=== PATIENT | female | born 1975 | race Caucasian/White ===

== ENCOUNTER 2022-08-23 09:56 | Outpatient (CLI) | payer BC, SELFPAY ==
--- NOTE | 2022-08-23 10:15 | CRLHL7_ITS ---
For Patients: As a result of the Century Cures Act, medical imaging exams and procedure reports are released immediately into your electronic medical record. You may view this report before your referring provider. If you have questions, please contact your health care provider. INDICATION: Intermittent esophageal spasm. TECHNIQUE: Single and double contrast esophagram. FINDINGS: No stricture, mass, or obstruction. No evidence for esophageal spasm during the course of the study. No evidence for any significant reflux or reflux esophagitis. There was however a very tiny sliding type esophageal hiatal hernia seen only twice during the course of the study and likely of doubtful clinical significance. Brief evaluation of the stomach and duodenum indicate that they are grossly unremarkable. 2 minutes 9 seconds fluoroscopy time utilized. IMPRESSION : Tiny sliding type esophageal hiatal hernia. No significant reflux. The examination is otherwise negative. Dictated by Ezekiel Arreola MD @ 08/23/2022 11:05:14 AM (Electronically Signed)
== END 2022-08-23 09:57 | disposition home or self-care (01) ==
PROVIDERS: PCP Internal Medicine; Visit Provider Internal Medicine
DX: K22.4 Dyskinesia of esophagus (principal); K44.9 Diaphragmatic hernia without obstruction or gangrene
CPT/HCPCS: 74221

== ENCOUNTER 2024-04-12 09:22 | Day surgery (SDC) | payer OTHER, SELFPAY ==
--- OUTSIDE RECORDS SUMMARY | 2024-04-12 09:26 | XMS_ITS | Clinical Summary ---
Author Organization [facility] Address [place], [place] [address] Care Team Providers [employer] Couch Frame Builder Name Role Phone Gretchen Vyas PharmD Unavailable [phone] Love Mcdaniel MD Primary Care Provider [phone] Kelly Blount RN Unavailable Allergies Active Allergy Reactions Criticality Noted Date Comments Silver Sulfate-Foam Bandage Hives 03/18/19 25 Medications fexofenadine (ELOISA) 180 mg tablet Take 1 tablet by mouth. One tab PO Q HS X 2 month supply 60 tablet 3 06/07/19 11 Active aspirin chewable 81 mg chewable tablet Take 81 mg by mouth once daily with a meal. Active tretinoin 0.1 % cream Apply topically to affected area(s) at bedtime. 45 g 3 2 2:47 PM CDT 10/27/19 22 Active mupirocin (BACTROBAN OINTMENT) ointmentIndicatio ns:Sore in nose Apply topically to affected area(s) once daily if needed (nose sores). 22 g 1 3 2:17 PM SPECIALTY SALES CONSULTANT 04/08/19 23 Active nitroglycerin (NITROSTAT) 0.[address] 1 tablet by sublingual route at the 1st sign of attack; may repeat every 5 min until relief; if pain persists after 3 tablets in 15 min, call 911 25 Tablet 4 2:38 PM SPECIALTY SALES CONSULTANT 03/10/19 24 Active OneTouch Delica Plus Lancet 33 gauge miscIndications:T ype 2 diabetes mellitus without complications (HC) Test blood sugar once daily. 100 Each 4 1:08 PM SPECIALTY SALES CONSULTANT 05/30/19 24 Active blood sugar diagnostic (OneTouch Ultra Test) stripIndications: Type 2 diabetes mellitus without complications (HC) Test once daily. 100 Each 3 4 1:08 PM SPECIALTY SALES CONSULTANT 05/29/19 24 Active medication order composerIndicatio ns:Menopause DHEA Pure Encapsulations 5mg. Take 1 daily Optiferrin-C Pure Encapsulations. 1 daily Garden of Life Probiotic 100 billion Fish Oil Magnesium glycinate Pure Encapsulations 1-2 pills nightly NeuroMag Life Extensions 3 pills daily Blood Sugar Support Vital Proteins 2 pills daily 08/15/19 24 Active levothyroxine (SYNTHROID) 100 mcg tabletIndications :Acquired hypothyroidism Take 1 Tablet (100 mcg) by mouth once daily. 90 Tablet 2 4 12:40 PM SPECIALTY SALES CONSULTANT 08/27/19 24 Active progesterone micronized (PROMETRIUM) 100 mg capsuleIndication s:Menopause,Acqui red hypothyroidism,Ir on deficiency Take 1 Capsule (100 mg) by mouth at bedtime. This product contains peanut oil. Please verify patient allergies. 90 Capsule 3 4 4:02 PM SPECIALTY SALES CONSULTANT 09/10/19 24 Active transmitter (Dexcom G6 Transmitter) for continuous blood glucose monitor (CGM)Indications: Type 2 diabetes mellitus without complication, without long-term current use of insulin (HC) Change every 90 days 1 Each 3 5 11:16 AM SPECIALTY SALES CONSULTANT 09/17/19 24 Active Dexcom G6 Sensor for continuous blood glucose monitor (CGM)Indications: Type 2 diabetes mellitus without complication, without long-term current use of insulin (HC) Change sensor every 10 days 9 Each 3 4 1:08 PM SPECIALTY SALES CONSULTANT 09/17/19 24 Active COVID-19 antigen test (CorDx Covid-19 Ag Home Test) kit Use as directed on packaging. 4 Kit 5 11:16 AM SPECIALTY SALES CONSULTANT 10/27/19 24 Active hydrOXYzine HCL (ATARAX) 25 mg tabletIndications :Panic attack Take 1 Tablet (25 mg) by mouth every 6 hours if needed for Anxiety. 25 Tablet 1 4 4:02 PM SPECIALTY SALES CONSULTANT 11/14/19 24 Active atorvastatin (LIPITOR) 80 mg tabletIndications :Mixed hyperlipidemia Take 1 Tablet (80 mg) by mouth at bedtime. 90 Tablet 4 4:02 PM SPECIALTY SALES CONSULTANT 12/10/19 24 Active busPIRone (BUSPAR) 30 mg tabletIndications :Generalized anxiety disorder Take 1 Tablet (30 mg) by mouth two times daily. 180 Tablet 4 4:01 PM SPECIALTY SALES CONSULTANT 12/10/19 24 Active fish oil-omega-3 fatty acids 300-1,000 mg Take 1 Capsule by mouth once daily. 90 Capsule 3 12/11/19 24 Active testosterone buik powderIndications :Low testosterone level in female Testosterone 4mg/gram cream (topiclick): apply 0.5 gram topically at bedtime (2 click) 30 g 2 12/17/19 24 Active Dexcom G6 Coil Finisher for continuous blood glucose monitor (CGM)Indications: Type 2 diabetes mellitus without complication, without long-term current use of insulin (HC) To be used to read blood sugars follow tugger operator directions. 1 Each 3 4 3:32 PM CDT 12/26/19 24 Active metFORMIN (GLUCOPHAGE XR) 500 mg Extended-Release tabletIndications :Type 2 diabetes mellitus without complication, with long-term current use of insulin (HC) Take 2 Tablets (1,000 mg) by mouth two times daily with meals. 360 Tablet 4 3:48 PM SPECIALTY SALES CONSULTANT 01/22/20 24 Active glipiZIDE extended-release (GLUCOTROL XL) 5 mg Extended-Release tabletIndications :Type 2 diabetes mellitus without complication, without long-term current use of insulin (HC) Take 1 Tablet (5 mg) by mouth two times daily before meals. 180 Tablet 3 4 12:40 PM SPECIALTY SALES CONSULTANT 02/11/20 24 Active Blood-Glucose MeterIndications: Type 2 diabetes mellitus without complication, without long-term current use of insulin (HC) Dispense meter covered by pts insurance 1 Each 4 12:40 PM SPECIALTY SALES CONSULTANT 02/11/20 24 Active hydroCHLOROthiazi de 25 mg tabletIndications :Primary hypertension Take 1 Tablet (25 mg) by mouth once daily. 90 Tablet 3 4 1:08 PM SPECIALTY SALES CONSULTANT 02/11/20 24 Active estradiol 0.075 mg/24 hr SEMIWEEKLY patchIndications: Menopausal syndrome (hot flashes) Apply 1 Patch on dry, clean, hairless skin every Friday and . 24 Patch 4 4 12:49 PM SPECIALTY SALES CONSULTANT 02/19/20 24 Active fluticasone (50 mcg per actuation) nasal solution (FLONASE)Indicati ons:Nasal congestion Inhale 2 Sprays into affected nostril(s) once daily. 48 g 3 4 1:08 PM SPECIALTY SALES CONSULTANT 02/23/20 24 Active traZODone (DESYREL) 50 mg tabletIndications :Chronic insomnia Take 2 Tablets (100 mg) by mouth at bedtime. 180 Tablet 5 4:01 PM SPECIALTY SALES CONSULTANT 03/10/19 25 Active oxyCODONE (ROXICODONE) 5 mg immediate release tabletIndications :Malignant neoplasm of right female breast, unspecified estrogen receptor status, unspecified site of breast (HC) Take 1 Tablet (5 mg) by mouth every 6 hours if needed for Pain. 5 Tablet 5 8:12 AM SPECIALTY SALES CONSULTANT 03/11/19 25 Active sennosides-docusa te (SENOKOT S) (8.6-50 mg) tabletIndications :Malignant neoplasm of right female breast, unspecified estrogen receptor status, unspecified site of breast (HC) Take 1 Tablet by mouth 2 times daily if needed for Constipation. 20 Tablet 5 8:12 AM SPECIALTY SALES CONSULTANT 03/11/19 25 Active DULoxetine (CYMBALTA) 30 mg Delayed-release capsuleIndication s:Generalized anxiety disorder,Moderate episode of recurrent major depressive disorder (HC) Take 3 Capsules (90 mg) by mouth once daily. 270 Capsule 1 5 11:16 AM SPECIALTY SALES CONSULTANT 03/22/19 25 Active amoxicillin-clavu lanate (AUGMENTIN) 500-125 mg tablet Take 1 Tablet by mouth two times daily with meals for 5 days. 10 Tablet 5 1:54 PM SPECIALTY SALES CONSULTANT 04/07/19 25 2024 Active ondansetron (ZOFRAN) 4 mg tablet Take 1 Tablet (4 mg) by mouth every 8 hours. 90 Tablet 5 1:54 PM SPECIALTY SALES CONSULTANT 04/07/19 25 Active prochlorperazine (COMPAZINE) 5 mg tablet Take 1 Tablet (5 mg) by mouth every 8-12 hours if needed for nausea and vomiting. 90 Tablet 5 1:54 PM SPECIALTY SALES CONSULTANT 04/07/19 25 Active DULoxetine (CYMBALTA) 30 mg Delayed-release capsuleIndication s:Generalized anxiety disorder,Moderate episode of recurrent major depressive disorder (HC) Take 3 Capsules (90 mg) by mouth once daily. 270 Capsule 4 3:48 PM SPECIALTY SALES CONSULTANT 01/22/20 24 2024 Discontin ued(*Avai lability/ Formulary change/Co st of medicatio n) ibuprofen (ADVIL; MOTRIN) 600 mg tabletIndications :Malignant neoplasm of right female breast, unspecified estrogen receptor status, unspecified site of breast (HC) Take 1 Tablet (600 mg) by mouth every 8 hours for 3 days. Maximum of 3200 mg in 24 hours. 9 Tablet 5 8:12 AM SPECIALTY SALES CONSULTANT 03/11/19 25 2024 acetaminophen (TYLENOL) 325 mg tabletIndications :Malignant neoplasm of right female breast, unspecified estrogen receptor status, unspecified site of breast (HC) Take 1-2 Tablets (325-650 mg) by mouth every 8 hours for 3 days. Max acetaminophen dose: 4000mg in 24 hrs. 12 Tablet 5 8:12 AM SPECIALTY SALES CONSULTANT 03/11/19 25 2024 Active Problems Problem Noted Date Diagnosed Date Invasive ductal carcinoma of breast, female, rig ht 02/26/2024 Breast cancer 02/23/2024 Cancer Staging:Clinical:Stage IA(cT1b, cN0, cM0, G2, ER+, VT+, HER2-) - Signed by Stephan Franklin MD on 03/12/2024 Hypertriglyceridemia 12/11/2023 Esophageal spasm 04/08/2023 SLAP lesion of right shoulder 12/25/2020 Calculus of kidney 12/21/2020 Rhinitis, allergic 12/04/2017 Acquired hypothyroidism 06/03/2016 Mixed hyperlipidemia 06/03/2016 Moderate episode of recurrent major depressive d isorder 06/03/2016 Primary hypertension 06/03/2016 Gastroesophageal reflux disease without esophagi tis 03/29/2015 Diabetes mellitus, type 2 12/26/2014 Dyssomnia 06/03/2013 Meniere's disease 06/03/2013 OCD (obsessive compulsive disorder) 09/18/2010 Polycystic ovary syndrome 06/03/2007 Dysthymic disorder 05/27/2007 Generalized anxiety disorder 05/27/2007 Resolved Problems Problem Noted Date Diagnosed Date Resolved Date Encounter for diagnostic endoscopy 04/08/2023 09/08/2023 Closed displaced fracture of distal phalanx of left little finger with routine healing 12/30/2017 02/21/2022 Encounters Date Type Department Care Team Description 04/11/2024 Refill [facility] [address] [place] [address] Love Mcdaniel MD Refill Request 04/08/2024 Travel 04/06/2024 Telephone [facility] [address] [place] [address] Lora Wallace PA 03/26/2024 Telephone [facility] [address] [place] [address] Mary Alice Armando, GERARDO Eye Exam 03/20/2024 Refill [facility] [address] [place] [address] Love Mcdaniel MD Refill Request (Duloxetine) 03/19/2024 11:20 AM SPECIALTY SALES CONSULTANT Office Visit [facility] [address] [place] [address] Mary Alice Armando, GERARDO Eye Problem (Floaters) 03/18/2024 9:00 AM SPECIALTY SALES CONSULTANT Office Visit [facility] [address] [place] [address] Lora Wallace PA Post-op (doing well. feels sore ) 03/18/2024 Travel 03/16/2024 Telephone [facility] [address] [place] [address] [facility] Referral (Invasive ductal carcinoma of breast, female, right) 03/16/2024 Telephone [facility] [address] [place] [address] Stephan Franklin MD 03/15/2024 Telephone [facility] [address] [place] [address] Azeb العلي, MS, CGC Results 03/14/2024 Travel 03/12/2024 Patient Outreach [facility] [address] [place] [address] Odessa Arrieta RN Surgical Followup (DOD-03/11/24) 03/11/2024 10:30 AM SPECIALTY SALES CONSULTANT - 03/11/2024 1:25 PM SPECIALTY SALES CONSULTANT Surgery [facility] [address] [place] [address] Stephan Franklin MD RIGHT PARTIAL MASTECTOMY AND SENTINEL LYMPH NODE BIOPSY 03/11/2024 10:28 AM SPECIALTY SALES CONSULTANT Anesthesia Event [facility] [address] [place] [address] Janet Dai, Jeanie Frazier, MUCKING MACHINE OPERATOR 03/11/2024 8:47 AM SPECIALTY SALES CONSULTANT - 03/11/2024 3:12 PM SPECIALTY SALES CONSULTANT Hospital Encounter [facility] [address] [place] [address] Stephan Franklin MD Malignant neoplasm of right female breast, unspecified estrogen receptor status, unspecified site of breast (HC) Discharge Disposition: Home Self Care 03/10/2024 11:15 AM SPECIALTY SALES CONSULTANT Office Visit [facility] [address] [place] [address] Love Mcdaniel MD Diabetes; Pre-Op Exam 03/10/2024 10:00 AM SPECIALTY SALES CONSULTANT - 03/10/2024 11:59 PM SPECIALTY SALES CONSULTANT Hospital Encounter [facility] [address] [place] [address] Stephan Franklin MD Malignant neoplasm of right female breast, unspecified estrogen receptor status, unspecified site of breast (HC) 03/10/2024 Travel 03/05/2024 2:54 PM SPECIALTY SALES CONSULTANT - 03/05/2024 11:59 PM SPECIALTY SALES CONSULTANT Hospital Encounter [facility] [address] [place] [address] 03/05/2024 Orders Only [facility] [address] [place] [address] Azeb العلي MS, CGC Lab 03/05/2024 Travel 03/05/[address] [address] Stephan Franklin MD [employer] message sent 03/04/[address] [address] Stephan Franklin MD Surgery Scheduled (scheduled surgery for 03/11/24) 03/02/2024 9:00 AM SPECIALTY SALES CONSULTANT Telemedicine [facility] [address] [place] [address] Azeb العلي, MS, [facility] Counseling (Genetic counseling/ ) 02/27/2024 11:15 AM SPECIALTY SALES CONSULTANT Office Visit [address] [address] Stephan Franklin MD Consult (right breast ) 02/27/2024 Telephone [facility] [address] [place] [address] Shi Amin Cancer Genetics 02/27/2024 Travel 02/24/2024 Travel 02/24/2024 Orders Only [address] [address] Love Mcdaniel MD <No scans attached> 02/20/2024 7:44 AM SPECIALTY SALES CONSULTANT - 02/20/2024 11:59 PM SPECIALTY SALES CONSULTANT Hospital Encounter [facility] [address] [place] [address] Love Mcdaniel MD Abnormal finding on mammography 02/20/[address] [place] [address] Love Mcdaniel MD Results 02/20/2024 Travel 02/19/2024 Refill [facility] [address] [facility] [place] [address] Love Mcdaniel MD Refill Request 02/18/2024 11:24 AM SPECIALTY SALES CONSULTANT - 02/18/2024 11:59 PM SPECIALTY SALES CONSULTANT Hospital Encounter [facility] [address] [facility] [address] Screening mammogram for breast cancer 02/18/2024 Travel 02/11/2024 10:00 AM SPECIALTY SALES CONSULTANT Telemedicine [address] [facility] [address] Leighton Vallecillo, MUSIC RESEARCHER Follow Up; Telehealth 02/11/2024 8:00 AM SPECIALTY SALES CONSULTANT Office Visit [facility] [address] [facility] [place] [address] Love Mcdaniel MD Diabetes (High Glucose numbers; mid-200's and sometimes higher; needs a new blood glucose meter) 02/10/2024 Travel 01/19/2024 Refill [facility] [address] [facility] [place] [address] Love Mcdaniel MD Refill Request from Last 3 Months Immunizations Name Administration Dates Next Due COVID-19 vaccine (Pfizer-Bio NTech 30mcg/0.3mL) 12YO+ BIVALENT PF, MDV 12/03/2021 COVID-19 vaccine (Pfizer-Bio NTech 30mcg/0.3mL) PF, MDV 04/05/2020,03/15/2020 HepA-HepB (Twinrix) 01/20/2013,08/19/2012,2012 INFLUENZA, IIV3 PF (AGE >= 6 MO) 11/26/2023 Influenza A (H1N1), Inactivated 11/30/2022 Influenza A (H1N1), Inactiva cassy (Age >=3 Years) 02/15/2009 Influenza Virus, Unspecified 12/04/2018, 12/09/2017,11/11/2016,2015,11/11/2014,12/15/2013,11/21/2011,1 03/16/2010,11/20/2009 Influenza, IIV3 (Age >=3 years) 12/22/2012 Influenza, IIV4 12/05/2021,,2019,2018,2017,11/11/2016,11/16/2015 Influenza, RIV3 (Age =>18 Years) 12/05/2021 Pneumococcal Poly,23-Valent (Pneumovax) 11/01/2011 Pneumococcal conj 13-Valent (Prevnar 13) 07/01/2017 Td (Age >=7 Years) 08/13/2006 Tdap 03/06/2020,10/02/2011 Family History Medical History Relation Name Comments Heart Disease Father Cancer-pancreatic Mother Cancer-breast No Family History Relation Name Status Comments Father Alive Mother Social History Tobacco Use Types Packs/Day Years Used Date Smoking Tobacco: Never Passive Smoke Exposure: Past Smokeless Tobacco: Never Tobacco Cessation:Counseling Given: Not Answered Alcohol Use Standard Drinks/Week Comments Not Currently 3.3 (1 standard drink = 0.6 oz p ure alcohol) PHQ-2 Answer Date Recorded PHQ-2 TOTAL SCORE 0 12/10/2023 Social Connections Answer Date Recorded Do you often feel lonely or isolated from those around you? 0 09/09/2023 Financial Resource Strain Answer Date R ecorded Difficulty of Paying Living Expenses 3 09/09/2023 Difficulty of Paying Living Expenses Not on file 09/09/2023 Food Insecurity Answer Date Recorded Do you worry your food will run out before you are able to buy more? 1 09/09/2023 Transportation Needs Answer Date Record ed Does lack of transportation keep you from medica l appointments? 1 09/09/2023 Does lack of transportation keep you from work, meetings or getting things that you need? 1 09/09/2023 Housing Stability Answer Date Recorded What is your housing situation today? 1 09/09/2023 Utilities Answer Date Recorded Do you have trouble paying f or utilities (for example, heat, electricity, water, phone)? 1 09/09/2023 Comments No Sex and Gender Information Value Date Recorded Sex Assigned at Not on file Legal Sex Female 7:27 AM SPECIALTY SALES CONSULTANT Gender Identity Not on file Sexual Orientation Not on file Obstetrics History Last Filed Vital Signs Vital Sign Reading Time Taken Comments Blood Pressure 100/62 03/18/2024 8:59 AM SPECIALTY SALES CONSULTANT Pulse 105 03/18/2024 8:59 AM SPECIALTY SALES CONSULTANT Temperature 36.4 C (97.6 F) 03/11/2024 1:00 PM SPECIALTY SALES CONSULTANT Respiratory Rate 16 03/11/2024 2:30 PM SPECIALTY SALES CONSULTANT Oxygen Saturation 99% 03/18/2024 8:59 AM SPECIALTY SALES CONSULTANT Inhaled Oxygen Concentration - - Weight 71.4 kg (157 lb 6.5 oz) 03/11/2024 10:03 AM SPECIALTY SALES CONSULTANT Height 162.6 cm (5' 4) 03/11/2024 10:03 AM SPECIALTY SALES CONSULTANT Body Mass Index 27.02 03/11/2024 10:03 AM SPECIALTY SALES CONSULTANT Plan of Treatment Upcoming Encounters Date Type Department Care Team (Late st Contact Info) Description 04/13/2024 3:40 PM SPECIALTY SALES CONSULTANT Office Visit [facility] [address] [place] [phone] Milady Bentley, OD [address] [place] [address] 06/02/2024 11:30 AM CDT Office Visit [address] [address] Love Mcdaniel MD [address] [place] [address] 06/09/2024 10:00 AM CDT Telemedicine [address] [place] [phone] Leighton Vallecillo, MUSIC RESEARCHER [address] [place] [address] [place] [address] 07/21/2024 11:00 AM CDT Telemedicine [address] [place] [phone] Leighton Vallecillo, MUSIC RESEARCHER [address] [place] [address] Health Maintenance Due Date Last Done Comments Zoster (shingles) series for age 50+ (1 of 2) 1992 Pneumococcal series for age 50+ (3 of 3 - PPSV23, PCV20 or PCV21) 08/26/2017 07/01/2017, 11/01/2011 COVID-19 vaccine series ( season) 2024 01/05/2024, 12/20/2022, 12/03/2021, Additional history exists BMI (ht and wt on same day) for age 18+ 08/03/2024 08/04/2023, 03/24/2023, 12/16/2022, Additional history exists Depression screening for age 12+ 12/09/2024 12/10/2023, 11/26/2023, 11/19/2023, Additional history exists Fecal testing sDNA-FIT (Weir guard) for age 45-75 12/23/2024 12/23/2021 (Verified in Care Everywhere or Patient Record) Mammogram for age 45-75 02/17/2025 02/18/20 24, 02/10/2023, 02/19/2022 (Verified in Care Everywhere or Patient Record) Pap test for age 21-65 01/28/2027 (Verified in Care Everywhere or Patient Record) Lipids for age 45-75 12/09/2028 12/10/2023, 11/14/2022, 12/03/2021 (Verified in Care Everywhere or Patient Record) Tetanus booster 03/06/2030 03/06/2020, 08/03/2011, 08/13/2006 HIV for age 15-65 Completed 12/18/2010 Hepatitis C screening for ag e 18-79 Completed 12/18/2010 Hepatitis B series for Diabetes Completed 01/20/2013, 08/19/2012, 07/07/2012 Tdap Completed 03/06/2020, 10/02/2011 Influenza for age 50-64 Completed 11/26/19 24, 11/30/2022, 12/05/2021, Additional history exists Medical Devices Implanted Type Area Watcher Automat Long Goods Device Identifier Shelf Expiration Date Model / Serial / Lot Sut Arthrex Prox Tenodesis Implnt Kit Rev 0 - [id number] Implanted:Qty: 1 on 12/26/2020 by Chip Ruby MD at [facility] Right: Shoulder [employer] 09/30/2025 [id number] / / [id number] Procedures Procedure Name Priority Date/Time Associated Diagnosis Comments XR BREAST SPECIMEN RIGHT YONATHAN 03/11/2024 12:24 PM SPECIALTY SALES CONSULTANT Malignant neoplasm of right female breast, unspecified estrogen receptor status, unspecified site of breast (HC) MSO AP SEND-OUT Timed 03/11/2024 12:09 PM SPECIALTY SALES CONSULTANT PATH TISSUE EXAM Today 03/11/2024 11:15 AM SPECIALTY SALES CONSULTANT PERIPHERAL BLOCK Routine 03/11/2024 11:00 AM SPECIALTY SALES CONSULTANT SUPRAGLOTTIC-LMA Routine 03/11/2024 10:57 AM SPECIALTY SALES CONSULTANT MASTECTOMY WITH SENTINEL LYMPH NODE BIOPSY 03/11/2024 10:13 AM SPECIALTY SALES CONSULTANT Malignant neoplasm of right female breast, unspecified estrogen receptor status, unspecified site of breast (HC) Case Notes PATHOLOGY: confirmed 1030 startMAGSEED: 03/10 10amSENTINEL LYMPH NODE INJ: 03/11 @ 930LYMPHOSCINTIGRAPHY: 03/11 @ 930SPECIMEN MAMMOGRAM: 03/11 @ 12rep aware of 1030 start-03/08 GLUCOSE METER Routine 03/11/2024 9:57 AM SPECIALTY SALES CONSULTANT BEDSIDE US STUDY ARCHIVE Routine 03/11/2024 9:49 AM SPECIALTY SALES CONSULTANT NM INJ SENTINEL NODE BREAST RIGHT YONATHAN 03/10/2024 4:00 PM SPECIALTY SALES CONSULTANT Malignant neoplasm of right female breast, unspecified estrogen receptor status, unspecified site of breast (HC) BASIC METABOLIC PANEL STAT 03/10/2024 12:33 PM SPECIALTY SALES CONSULTANT Pre-op exam US BREAST MAGNETIC SEED LOCALIZATION RIGHT YONATHAN 03/10/2024 10:42 AM SPECIALTY SALES CONSULTANT Malignant neoplasm of right female breast, unspecified estrogen receptor status, unspecified site of breast (HC) XR MAMMO POST CLIP PLCMT RT YONATHAN 03/10/2024 10:33 AM SPECIALTY SALES CONSULTANT Malignant neoplasm of right female breast, unspecified estrogen receptor status, unspecified site of breast (HC) US BIOPSY BREAST NEEDLE W BRITTNEE W GUIDE RIGHT YONATHAN 02/20/2024 9:55 AM SPECIALTY SALES CONSULTANT Abnormal finding on mammography XR MAMMO POST CLIP PLCMT RT Routine 02/20/2024 9:41 AM SPECIALTY SALES CONSULTANT Abnormal finding on mammography PATH BREAST CORE BIOPSY Today 02/20/2024 9:33 AM SPECIALTY SALES CONSULTANT US BREAST UNILATERAL RIGHT LIMITED YONATHAN 02/20/2024 8:46 AM SPECIALTY SALES CONSULTANT Abnormal finding on mammography XR MAMMO THUY BILAT SCREEN Routine 02/18/2024 11:56 AM SPECIALTY SALES CONSULTANT Screening mammogram for breast cancer LIPID PANEL W REFLEX MEASURED LDL Routine 12/10/2023 12:06 PM CDT Mixed hyperlipidemia ANTI HIV 1/2 Routine 12/18/2010 3:43 PM CDT Hx-cont/exps haz bdy fld ANTI HCV Routine 12/18/2010 3:43 PM CDT Hx-cont/exps haz bdy fld from Last 3 Months or Most Recently Relevant to Health Maintenance Results * XR BREAST SPECIMEN RIGHT (03/11/2024 12:24 PM SPECIALTY SALES CONSULTANT) Anatomical Region Laterality Modality Breast Right N/A Mammography 03/12/2024 8:28 AM SPECIALTY SALES CONSULTANT Narrative 03/12/2024 10:16 AM SPECIALTY SALES CONSULTANT For Patients: As a result of the 21st Century Cures Act, medical imaging exams and procedure reports are released immediately into your electronic medical record. You may view this report before your referring provider. If you have questions, please contact your health care provider. XR BREAST SPECIMEN RIGHT INDICATION: Malignant RIGHT breast lesion. TECHNIQUE: Lumpectomy specimen radiograph. FINDINGS: Small breast mass with biopsy localization clip and Mag seed are at the center of the single lumpectomy specimen. Dictated by: Yasmeen Connelly MD @03/12/2024 8:28:11 AM/CRL:jmr us Stephan Franklin MD MAMMO Final Resu lt * MSO AP SEND-OUT (03/11/2024 12:09 PM SPECIALTY SALES CONSULTANT) Tissue (Right Breast) 03/11/2024 12:09 PM SPECIALTY SALES CONSULTANT 03/25/2024 9:19 AM SPECIALTY SALES CONSULTANT Stephan Franklin MD LABORATORY Final Resu lt [facility] [address] [place] [id number], * PATH TISSUE EXAM (03/11/2024 11:15 AM SPECIALTY SALES CONSULTANT) Case Report Pathology Report Case: [id number] Authorizing Provider: Stephan Franklin MD Collected: 03/11/2024 1115 [facility] Received: 03/12/[address] [place] [address] Pathologist: Liu Crews MD Specimens: A) - Right Breast, partial mastectomy B) - Right Axillary [place] Lymph Node 1 C) - Right Axillary [place] Lymph Node 2 04/05/2024 8:31 AM SPECIALTY SALES CONSULTANT [facility] Amendment 04/05/2024-The tissue was submitted to [facility] for Oncotype DX for Breast Cancer testing. Please see attached scanned report. 04/05/2024 8:31 AM SPECIALTY SALES CONSULTANT [facility] Final Diagnosis A) RIGHT BREAST, PARTIAL MASTECTOMY: 1. Invasive ductal carcinoma, Warren grade II of III a. Size: 9 mm b. Core biopsy site is associated with tumor 2. Ductal carcinoma in situ (DCIS), nuclear grade 2, Solid type 3. Margins: a. Invasive carcinoma is more 5 mm from all resection margins b. DCIS is 1.5 mm from the posterolateral margin over a 7 mm span 4. Breast Ancillary Testing: Performed on prior case ([id number]) a. Hormone Receptors: Estrogen receptor: Positive (99%, strong staining) Progesterone receptor: Positive (92%, moderate staining) b. HER2 by IHC: Negative (1+ by manual morphometry) c. Ki-67: 56% by image analysis 5. Surrounding breast with fibrocystic changes B) RIGHT AXILLARY SENTINEL LYMPH NODE #1, EXCISIONAL BIOPSY: 1. One lymph node identified, negative for metastatic carcinoma (0/1) C) RIGHT AXILLARY SENTINEL LYMPH NODE #2, EXCISIONAL BIOPSY: 1. One lymph node identified, negative for metastatic carcinoma (0/1) 04/05/2024 8:31 AM SPECIALTY SALES CONSULTANT [facility] Amendment electronically signed by Liu Crews MD on 04/05/2024 at 8:31 AM Clinical Information Right breast (6:00, 4 cm from nipple) invasive ductal carcinoma, Warren grade II ([id number]). 04/05/2024 8:31 AM SPECIALTY SALES CONSULTANT [facility] Gross Description A) Received fresh for intraoperative consultation, labeled with the patient's name and Right breast partial mastectomy, is a 27.6 gram, 5.5 (SI) x 5.2 (ML) x 1.5 (AP) cm magnetic seed-localized breast lumpectomy specimen. The specimen is inked by the surgical staff in the OR: Anterior--Mercer Posterior--Black Superior--Blue Inferior--Red Medial--Green Lateral--Yellow The specimen is serially sectioned from superior to inferior into 9 slices revealing a 1 (A-P) x 1 (I-S) x 0.8 (M-L) cm white-wheeler solid mass with focally ill-defined edges. It is found within slice(s) 6-7 with the following characteristics: Biopsy site change: Present in slices 6-7 Biopsy clip: Is grossly identified Closest margin: Posterior and anterior Distance to margins: Anterior: 1 cm Posterior: 1 cm Inferior: 1.4 cm Superior: 3 cm Medial: 2.5 cm Lateral: 1.2 cm The remaining cut surfaces consist of approximately 90% adipose tissue and 10% fibrous tissue. No other lesions are identified. Driver'S License Reviewing Officer sections are submitted in 13 cassettes as follows: 1. Slice #1 most superior slice radially sectioned 2. Slice #2 with anterior, lateral and posterior margins 3. Slice #3 with anterior, lateral and posterior margins 4. Slice #4 with anterior, medial and posterior margins 5. Slice #5 with anterior and posterior margins 6-9. Slice #6 with mass submitted lateral to medial 10-12. Slice #7 with mass submitted lateral to medial 13. Slice #8 with anterior and posterior margins, red ink seepage 14. Slice #9 most inferior slice radially sectioned An annotated photograph including sections taken is uploaded to the case. Time removed from patient: 12: 09 Time placed in formalin: 12: 28 Date removed and placed in formalin: 03/11/2024 Cold ischemic time < 60 minutes. The specimen was fixed in formalin for a minimum of 6 hours and not longer than 72 hours. ANAY 03/12/2024 B) Received fresh labeled with the patient's name and right axillary sentinel lymph node 1, is a 1.8 x 1.5 x 1.3 cm fatty tissue containing a 1.4 x 1 x 0.8 rubbery wheeler-white, maroon lymph node with gross lesion measuring 0.7 x 0.6 cm. No discrete extracapsular tumor extension is identified. The lymph node is quadrisected and entirely submitted in 1 cassette. Time removed from patient: 1115 Time placed in formalin: 1116 Date removed and placed in formalin: 03/11/2024 Cold ischemic time < 60 minutes. The specimen was fixed in formalin for a minimum of 6 hours and not longer than 72 hours. LDW 03/12/2024 C) Received fresh labeled with the patient's name and right axillary sentinel lymph node 2, is a 1.7 x 1.2 x 1.1 cm fatty tissue containing a rubbery to firm 1.8 x 1.1 x 0.8 cm lymph node with focal suspicious roque-white cut surfaces measuring up to 0.4 x 0.3 cm. Lymph node is quadrisected and entirely submitted in 1 cassette. Time removed from patient: 1123 Time placed in formalin: 1124 Date removed and placed in formalin: 03/11/2024 Cold ischemic time < 60 minutes. The specimen was fixed in formalin for a minimum of 6 hours and not longer than 72 hours. LDW 03/12/2024 04/05/2024 8:31 AM [facility] Intraoperative Consultation A) RIGHT BREAST, LUMPECTOMY, INTRAOPERATIVE CONSULTATION (Gross Evaluation Only): 1. Tumor grossly identified 2. Biopsy site change is identified grossly 3. Margins are grossly negative by 3 mm (the closest margins are anterior and posterior) Nicolas Coates MD, 03/11/2024 12:37 PM Intraoperative consultation, which may have included frozen section preparation, gross specimen examination, and/or cytology touch imprints/smears, was performed by a pathologist during the surgical procedure. This testing was performed at: [address] [address] 04/05/2024 8:31 AM [facility] Microscopic Description The final diagnosis is based on microscopic examination of appropriate sections of all specimens. 04/05/2024 8:31 AM [facility] SYNOPTIC REPORTING INVASIVE CARCINOMA OF THE BREAST: Resection INVASIVE CARCINOMA OF THE BREAST: RESECTION - All Specimens 8th Edition - Protocol posted: 02/12/2023 SPECIMEN Procedure: Excision (less than total mastectomy) Specimen Laterality: Right TUMOR Tumor Site: Clock position : 6 o'clock Tumor Site: Distance from nipple (Centimeters): 4 cm Histologic Type: Invasive carcinoma of no special type (ductal) Histologic Grade (Argelia Histologic Score): Glandular (Acinar) / Tubular Differentiation: Score 3 Nuclear Pleomorphism: Score 2 Mitotic Rate: Score 1 Overall Grade: Grade 2 (scores of 6 or 7) Tumor Size: Greatest dimension of largest invasive focus (Millimeters): 9 mm Tumor Focality: Single focus of invasive carcinoma Ductal Carcinoma In Situ (DCIS): Present : Negative for extensive intraductal component (EIC) Architectural Patterns: Solid Nuclear Grade: Grade II (intermediate) Necrosis: Present, focal (small foci or single cell necrosis) Lobular Carcinoma In Situ (LCIS): Not identified Lymphatic and / or Vascular Invasion: Not identified Dermal Lymphatic and / or Vascular Invasion: No skin present Treatment Effect in the Breast: No known presurgical therapy MARGINS Margin Status for Invasive Carcinoma: All margins negative for invasive carcinoma Distance from Invasive Carcinoma to Closest Margin: Greater than: 5 mm Closest Margin(s) to Invasive Carcinoma: From all margins Margin Status for DCIS: All margins negative for DCIS Distance from DCIS to Closest Margin: 1.5 mm Closest Margin(s) to DCIS: Posterior Closest Margin(s) to DCIS: Lateral REGIONAL LYMPH NODES Regional Lymph Node Status: : All regional lymph nodes negative for tumor Total Number of Lymph Nodes Examined (sentinel and non-sentinel): 2 Number of [place] Nodes Examined: 2 pTNM CLASSIFICATION (AJCC 8th Edition) Reporting of pT, pN, and (when applicable) pM categories is based on information available to the pathologist at the time the report is issued. As per the AJCC (Chapter 1, 8th Ed.) it is the managing physician s responsibility to establish the final pathologic stage based upon all pertinent information, including but potentially not limited to this pathology report. pT Category: pT1b pN Category: pN0 N Suffix: (sn) SPECIAL STUDIES Estrogen Receptor (ER) Status: Positive (greater than 10% of cells demonstrate nuclear positivity) Progesterone Receptor (PgR) Status: Positive HER2 (by immunohistochemi stry): Negative (Score 1+) Testing Performed on Comment(s): Block(s) for potential future ancillary testing: A11 04/05/2024 8:31 AM SPECIALTY SALES CONSULTANT [facility] Additional Information Interpreted at [facility] Ancestry [facility] - [address] [facility] [address] [address] 04/05/2024 8:31 AM SPECIALTY SALES CONSULTANT [facility]- ENTRAL LABORATORY Tissue (Right Axillary [place] Lymph Node 1) 03/11/2024 11:15 AM SPECIALTY SALES CONSULTANT 03/12/2024 9:46 AM SPECIALTY SALES CONSULTANT Tissue specimen (specimen) (Right Axillary [place] Lymph Node 2) 03/11/2024 11:23 AM SPECIALTY SALES CONSULTANT 03/12/2024 9:46 AM SPECIALTY SALES CONSULTANT Tissue specimen (specimen) (Right Breast) 03/11/2024 12:09 PM SPECIALTY SALES CONSULTANT 03/11/2024 12:30 PM SPECIALTY SALES CONSULTANT Stephan Franklin MD PATHOLOGY/CYTOLOGY Edited Result - Final [facility] [address] [place] [id number], [facility] [address] [place] [address] * Peripheral Block (03/11/2024 11:00 AM SPECIALTY SALES CONSULTANT) Janet Price CRNA - 03/11/2024 11:00 AM SPECIALTY SALES CONSULTANT Janet Dai CRNA 03/11/2024 11:01 AM Peripheral Block Patient location during procedure: OR Start time: 03/11/2024 10:40 AM End time: 03/11/2024 10:50 AM Reason for block: at surgeon's request, post-op pain and procedure for pain Requesting provider: Stephan Franklin MD PreProcedure Checklist Completed: patient identified, site marked, risks and benefits discussed, surgical consent, timeout performed and hand hygiene performed. Peripheral Block Patient position: supine Prep: chloraprep Patient monitoring: continuous pulse oximetry, ECG and blood pressure Neuro Status: heavy sedation Block type: PECS block, regional analgesia techniques Laterality: right Injection technique: single injection Injection assessment: incremental Needle Needle type: Stimuplex Needle Details: echogenic and stimulating Needle gauge: 20 G Needle length: 4 in Unilateral needle localization (ultrasound): live ultrasound guidance, needle and nerve visualized, no pathologic findings, local anesthetic visualized surrounding nerve, nerve appears normal and permanent images obtained. Unilateral needle Localization (plane blocks): needle and expected nerve location visualized, local anesthetic visualized in anatomic plane and anatomic plane and expected location of nerve appears normal Needle Localization (other): anatomical landmarks. Catheter Catheter used:no Events: no complications. Janet Dai CRNA ANESTHESIA PX NOTE ORDER YONATHAN Final Result * Supraglottic (03/11/2024 10:57 AM SPECIALTY SALES CONSULTANT) Janet Price CRNA - 03/11/2024 10:57 AM SPECIALTY SALES CONSULTANT Janet Dai CRNA 03/11/2024 10:58 AM Procedure: Supraglottic Patient location during procedure: OR Supraglottic Airway Properties Mask Ventilation: easy Type: i-gel Tube Size: 3 (4 too big) Insertion Attempts: 2 Placement Verification: auscultation and CO2 detection Assessment Assessment: atraumatic and dentition unchanged Airway Intervention: secured Janet Dai MUCKING MACHINE OPERATOR ANESTHESIA PX NOTE ORDER YONATHAN Final Result * (ABNORMAL) GLUCOSE METER (03/11/2024 9:57 AM SPECIALTY SALES CONSULTANT) GLUCOSE METER 169(H) 65 - 100 mg/dL 03/11/2024 9:58 AM SPECIALTY SALES CONSULTANT [facility] Blood BLOOD SPECIMEN / Unknown 03/11/2024 9:57 AM SPECIALTY SALES CONSULTANT 03/11/2024 9:58 AM SPECIALTY SALES CONSULTANT us Stephan Franklin MD CHEMISTRY Final Resu lt [facility] [address] [place] [address] * NM INJ SENTINEL NODE BREAST RIGHT (03/10/2024 4:00 PM SPECIALTY SALES CONSULTANT) Anatomical Region Laterality Modality Breast Right Nuclear Medicine 03/10/2024 4:25 PM SPECIALTY SALES CONSULTANT Impressions 03/10/2024 4:25 PM SPECIALTY SALES CONSULTANT Technically successful injection of the right breast for sentinel lymph node scintigraphy. Dictated by Ezekiel Arreola MD @ 03/10/2024 4:25:52 PM (Electronically Signed) Narrative 03/10/2024 4:25 PM SPECIALTY SALES CONSULTANT For Patients: As a result of the Cures Act, medical imaging exams and procedure reports are released immediately into your electronic medical record. You may view this report before your referring provider. If you have questions, please contact your health care provider. INDICATION: Malignant neoplasm of the right breast. Injection for sentinel lymph node scintigraphy. TECHNIQUE : Informed consent was obtained by the on-site staff. They discussed the risks and benefits of the procedure. The patient agreed to proceed. FINDINGS : Utilizing sterile technique, 1.95 mCi of Tc-99m filtered Sulfur Colloid was injected within an intradermal location superior lateral to the right nipple areolar complex. The patient tolerated the injection well. No immediate complications were documented. A sentinel lymph node was reportedly identified and marked on the overlying skin and covered with Tegaderm for surgery tomorrow March 11, 2024. No images were obtained or sent at the time of this dictation. Procedure Note Ezekiel Arreola MD - 03/10/2024 For Patients: As a result of the 21st Century Cures Act, medical imagingexams and procedure reports are released immediately into your electronicmedical record. You may view this report before your referring provider.If you have questions, please contact your health care provider. INDICATION: Malignant neoplasm of the right breast. Injection for sentinel lymph nodescintigraphy. TECHNIQUE : Informed consent was obtained by the on-site staff. They discussed therisks and benefits of the procedure. The patient agreed to proceed. FINDINGS : Utilizing sterile technique, 1.95 mCi of Tc-99m filtered Sulfur Colloidwas injected within an intradermal location superior lateral to the rightnipple areolar complex. The patient tolerated the injection well. No immediate complications weredocumented. A sentinel lymph node was reportedly identified and marked onthe overlying skin and covered with Tegaderm for surgery tomorrow March 11, 2024. No imageswere obtained or sent at the time of this dictation. IMPRESSION: Technically successful injection of the right breast for sentinel lymphnode scintigraphy. Dictated by Ezekiel Arreola MD @ 03/10/2024 4:25:52 PM (Electronically Signed) Stephan Franklin MD PA Final Resu lt * (ABNORMAL) STAT Basic Metabolic Panel BMP (03/10/2024 12:33 PM SPECIALTY SALES CONSULTANT) SODIUM 142 136 - 145 mmol/L 03/10/2024 1:14 PM [facility] POTASSIUM 4.2 3.5 - 5.1 mmol/L 03/10/2024 1:14 PM [facility] CHLORIDE 101 98 - 107 mmol/L 03/10/2024 1:14 PM [facility] CO2,TOTAL 26 22 - 29 mmol/L 03/10/2024 1:14 PM [facility] ANION GAP 15 5 - 18 03/10/2024 1:14 PM [facility] GLUCOSE 79 70 - 99 mg/dL 03/10/2024 1:14 PM [facility] CALCIUM 10.1 8.8 - 10.4 mg/dL 03/10/2024 1:14 PM [facility] Comment: Reference ranges for this test were updated on 01/06/2024 to reflect our healthy population more accurately. Reference range changes are not retroactively applied to results, but previous results using the same methodology can be interpreted in the context of the new reference range. BUN 16 6 - 20 mg/dL 03/10/2024 1:14 PM [facility] CREATININE 0.65 0.50 - 0.90 mg/dL 03/10/2024 1:14 PM [facility] BUN/CREAT RATIO 25(H) 10 - 20 1:14 PM [facility] eGFR >90 >90 mL/min/1.7 3m2 03/10/2024 1:14 PM [facility] Comment:As of 2021, eG FR is calculated by the CKD-EPI creatinine equation without race adjustment. eGFR can be influenced by muscle mass, exercise, and diet. The reported eGFR is an estimation only and is only applicable if the renal function is stable. Blood BLOOD SPECIMEN / Unknown [facility] / Unknown 03/10/2024 12:33 PM SPECIALTY SALES CONSULTANT 03/10/2024 12:36 PM SPECIALTY SALES CONSULTANT us Love Mcdaniel MD CHEMISTRY Final Resu lt [facility] [address] [place] [address] * US BREAST MAGNETIC SEED LOCALIZATION RIGHT (03/10/2024 10:42 AM SPECIALTY SALES CONSULTANT) Anatomical Region Laterality Modality Breast Right Ultrasound, Othe r 03/10/2024 11:1 6 AM SPECIALTY SALES CONSULTANT Impressions 03/11/2024 6:39 AM SPECIALTY SALES CONSULTANT Ultrasound-guided Mag Seed placement and a lesion at the 6 o'clock position RIGHT breast. ACR not applicable Dictated by: Yasmeen Connelly MD @03/10/2024 11:16:25 AM/dawna Narrative 03/11/2024 6:39 AM SPECIALTY SALES CONSULTANT For Patients: As a result of the Century Cures Act, medical imaging exams and procedure reports are released immediately into your electronic medical record. You may view this report before your referring provider. If you have questions, please contact your health care provider. ULTRASOUND-GUIDED RIGHT BREAST MAGNETIC SEED LOCALIZATION, 03/10/2024 INDICATION: IDC, RIGHT breast. TECHNIQUE: Ultrasound-guided Mag Seed placement RIGHT breast and postprocedural mammogram for Mag Seed placement. FINDINGS: The examination and risks were fully explained to the patient. A consent form was signed and a time-out conducted prior to initiating the study. Ultrasound localized the lesion and prior biopsy clip at the 6 o'clock position RIGHT breast. Utilizing sterile procedure 1 percent xylocaine as local anesthesia, a Mag Seed was placed at the anterior margin of the lesion. A subsequent mammogram confirms excellent localization. No bleeding at the puncture site or complication. The patient was stable at the termination of the procedure. us Stephan Franklin MD US Final Resu lt * XR MAMMO POST CLIP PLCMT RT (03/10/2024 10:33 AM SPECIALTY SALES CONSULTANT) Only the most recent of2 resultswithin the time period is included. Anatomical Region Laterality Modality BREASTS N/A Mammography Narrative 03/11/2024 6:39 AM SPECIALTY SALES CONSULTANT For Patients: As a result of the Century Cures Act, medical imaging exams and procedure reports are released immediately into your electronic medical record. You may view this report before your referring provider. If you have questions, please contact your health care provider. RIGHT POST-LOCALIZATION MAMMOGRAM MAGNETIC SEED PLACEMENT, 03/10/2024 PLEASE SEE [id number] FOR REPORT OF RIGHT BREAST MAGNETIC SEED LOCALIZATION SAME DAY. us Stephan Franklin MD MAMMO Final Resu lt * US BIOPSY BREAST NEEDLE W BRITTNEE W GUIDE RIGHT (02/20/2024 9:55 AM SPECIALTY SALES CONSULTANT) Anatomical Region Laterality Modality Breast Right Right Ultrasound, Othe r 02/20/2024 10:4 1 AM SPECIALTY SALES CONSULTANT Addenda Addendum by Harsh Connelly MD on 02/23/2024 12:17 PM SPECIALTY SALES CONSULTANT ADDENDUM ADDENDUM ADDENDUM Pathology results: A) RIGHT BREAST, 6:00, 4 CM FROM THE NIPPLE, ULTRASOUND-GUIDED CORE BIOPSY: 1. Invasive ductal carcinoma a. Warren grade: II of III; Argelia score: 6 of 9 b. Angio-lymphatic invasion: Absent c. Associated DCIS: Present d. Subtype: Solid e. Grade of DCIS: 2 of 3 2. Estrogen and progesterone receptor immunohistochemistry, and HER2 analysis are pending on block A1 and will be reported in an amendment Both the pathology and imaging are concordant. HARSH CONNELLY M.D. [email or web address] Impressions 02/23/2024 6:20 AM SPECIALTY SALES CONSULTANT Successful ultrasound-guided biopsy of the lesion at the 6 o'clock position RIGHT breast. ACR not applicable Dictated by: Yasmeen Connelly MD @02/20/2024 10:41:07 AM/dawna Narrative 02/23/2024 6:20 AM SPECIALTY SALES CONSULTANT For Patients: As a result of the Cures Act, medical imaging exams and procedure reports are released immediately into your electronic medical record. You may view this report before your referring provider. If you have questions, please contact your health care provider. ULTRASOUND-GUIDED RIGHT BREAST BIOPSY AND POST-BIOPSY MAMMOGRAM FOR CLIP PLACEMENT, 02/20/2024 INDICATION: Solid nodule 6 o'clock position RIGHT breast. TECHNIQUE: Ultrasound-guided RIGHT breast biopsy and postprocedural mammogram for clip placement. FINDINGS: The examination and risks were fully explained to the patient. A consent form was signed and a time-out conducted prior to initiating the study. Ultrasound localized and 8 mm hypoechoic lesion at the 6 o'clock position RIGHT breast. Utilizing sterile procedure and 1 percent xylocaine as local anesthesia, a 17-gauge introducer needle was directed to the margin of the lesion and three biopsy samples were obtained with an 18-gauge needle, fixed in formalin and sent to the laboratory for processing. A [place] vision clip was then placed directly within the lesion and this is confirmed on the postprocedural mammogram and is an accurate representation of the biopsied site. There was no bleeding at the puncture site or complication. The patient was stable at the termination of the procedure. us Love Mcdaniel MD US Edited Res ult - Final * PATH BREAST CORE BIOPSY (02/20/2024 9:33 AM SPECIALTY SALES CONSULTANT) Case Report Pathology Report Case: [id number] Authorizing Provider: Love Mcdaniel MD Collected: 02/20/2024 0933 Ordering Location: [facility] Received: 02/20/[address] [place] [address] Pathologist: Liu Crews MD Specimen: Right Breast Core Ultrasound Biopsy 02/24/2024 2:19 PM SPECIALTY SALES CONSULTANT [facility] Amendment 02/24/2024 - Amendment issued to incorporate ancillary studies. 02/24/2024 2:19 PM SPECIALTY SALES CONSULTANT [facility] ENTRAL [facility]ORAT[facility] Final Diagnosis A) RIGHT BREAST, 6:00, 4 CM FROM THE NIPPLE, ULTRASOUND-GUID ED CORE BIOPSY: 1. Invasive ductal carcinoma a. Warren grade: II of III; Argelia score: 6 of 9 b. Angio-lymphatic invasion: Absent c. Associated DCIS: Present d. Subtype: Solid e. Grade of DCIS: 2 of 3 2. Breast Ancillary Testing: a. Hormone Receptors: Estrogen receptor: Positive (99%, strong staining) Progesterone receptor: Positive (92%, moderate staining) b. HER2 by IHC: Negative (1+ by manual morphometry) c. Ki-67: 56% by image analysis 02/24/2024 2:19 PM SPECIALTY SALES CONSULTANT [employer] [facility] [facility] ENTRAL LABORATORY Amendment electronically signed by Ewa Lutz MD on 02/24/2024 at 2:19 PM Comment A) This is an image-guided breast biopsy. The pathologic findings should be correlated with radiologic and clinical findings prior to treatment decisions. Case seen in consultation with Dr. Lal. 02/24/2024 2:19 PM SPECIALTY SALES CONSULTANT [facility] Clinical Information A) Right breast mass, Ultrasound localized 8 mm hypoechoic lesion at the 6 o'clock position RIGHT breast. [place] vision clip 02/24/2024 2:19 PM SPECIALTY SALES CONSULTANT [facility] Gross Description A) Label: Patient's name and RT breast BX 6:00 4 cm FN Description: 3 Fibrofatty core biopsies Size: 1.0-1.4 cm in length by 0.2 cm in diameter Ink color: Green The specimen is submitted in toto in one cassette. Cold ischemic time: Less than 60 minutes, meets current ASCO/CAP guidelines. The specimen was fixed in formalin for a minimum of 6 hours and not longer than 72 hours. TLF 02/20/2024 02/24/2024 2:19 PM [facility] LABORATORY Microscopic Description The final diagnosis is based on microscopic examination of appropriate sections of all specimens. A) The presence of green ink is confirmed on tissue sections. 02/24/2024 2:19 PM [facility] SYNOPTIC REPORTING Breast Biomarker Reporting Template BREAST BIOMARKER REPORTING TEMPLATE - A Protocol posted: 02/12/2023 Test(s) Performed: Estrogen Receptor (ER) Status: Positive (greater than 10% of cells demonstrate nuclear positivity) Percentage of Cells with Nuclear Positivity: 99 % Average Intensity of Staining: Strong Test Type: Laboratory-deve loped test Primary Antibody: SP1 Test(s) Performed: Progesterone Receptor (PgR) Status: Positive Percentage of Cells with Nuclear Positivity: 92 % Average Intensity of Staining: Moderate Test Type: Laboratory-deve loped test Primary Antibody: 16 Test(s) Performed: HER2 by Immunohistochem istry: Negative (Score 1+) Test Type: Laboratory-deve loped test Primary Antibody: 4B5 Test(s) Performed: Ki-67 Ki-67 Percentage of Positive Nuclei: 56 % Primary Antibody: MIB1 Cold Ischemia and Fixation Times: Meet requirements specified in latest version of the ASCO / CAP Guidelines Testing Performed on Block Number(s): A1 METHODS Fixative: Formalin Image Analysis: Performed Method: Aperio morphometric analysis Biomarkers Scored by Image Analysis: ER Biomarkers Scored by Image Analysis: PgR Biomarkers Scored by Image Analysis: Ki-67 Comment(s): 2,425 nuclei were analyzed for Ki-67. 02/24/2024 2:19 PM [facility] Additional Information Patients with breast cancers that are HER2 IHC 3+ or IHC 2+/DRAGAN amplified may be eligible for several therapies that disrupt HER2 signaling pathways. Invasive breast cancers that test 'HER2-negative' (IHC 0, 1+ or 2+/DRAGAN not-amplified) are more specifically considered 'HER2-negative for protein overexpression/ gene amplification' since non-overexpress ed levels of the HER2 protein may be present in these cases. Patients with breast cancers that are HER2 IHC 0 - UltraLow, HER2 IHC 1+ or IHC 2+/DRAGAN not amplified may be eligible for a treatment that targets non-amplified/n on-overexpresse d levels of HER2 expression for cytotoxic drug delivery (IHC 0 - Null results do not result in eligibility currently). [facility] - [address] [facility] [address], [place] [address] Immunohistochem istry controls were reviewed and approved by the pathologist during this examination. 02/24/2024 2:19 PM SPECIALTY SALES CONSULTANT [facility] Other (Right Breast Core Ultrasound Biopsy) 02/20/2024 9:33 AM SPECIALTY SALES CONSULTANT 02/20/2024 10:04 AM SPECIALTY SALES CONSULTANT us Love Mcdaniel MD PATHOLOGY/CYTOLOGY Edited Result - Final [facility] [address] [place] [address], [place] * US BREAST UNILATERAL RIGHT LIMITED (02/20/2024 8:46 AM SPECIALTY SALES CONSULTANT) Anatomical Region Laterality Modality BREASTS, Breast Right Right Ultrasound , Other 02/20/2024 9:36 AM SPECIALTY SALES CONSULTANT Impressions 02/20/2024 10:51 AM SPECIALTY SALES CONSULTANT Solid lobulated nodule at the 6 o'clock position RIGHT breast is suspicious and will require biopsy. Results of the study were discussed with the patient who has elected to proceed with the biopsy today. BI-RADS Category 4: Suspicious Dictated by: Yasmeen Connelly MD @02/20/2024 9:36:42 AM/dawna Narrative 02/20/2024 10:51 AM SPECIALTY SALES CONSULTANT For Patients: As a result of the 21st Century Cures Act, medical imaging exams and procedure reports are released immediately into your electronic medical record. You may view this report before your referring provider. If you have questions, please contact your health care provider. RIGHT BREAST ULTRASOUND, 02/20/2024 INDICATION: New RIGHT breast asymmetry noted on the screening mammogram of 02/18/2024. TECHNIQUE: Ultrasound RIGHT breast. FINDINGS: At the 6 o'clock position 4 cm from the nipple there is a solid hypoechoic lobulated 8 x 7 x 8 mm nodule which corresponds to the density noted on mammography. Love Mcdaniel MD US Final Resu lt * XR MAMMO THUY BILAT SCREEN (02/18/2024 11:56 AM SPECIALTY SALES CONSULTANT) Anatomical Region Laterality Modality BREASTS, Breast Left, Breast Right Bilateral Mammography 02/18/2024 12:2 7 PM SPECIALTY SALES CONSULTANT Impressions 02/18/2024 1:55 PM SPECIALTY SALES CONSULTANT 1. New asymmetry at the 6 o'clock position RIGHT breast. Recommend correlation with ultrasound. 2. No evidence malignancy in the LEFT breast. BI-RADS Category 0: Incomplete: Need additional imaging evaluation Dictated by: Yasmeen Connelly MD @02/18/2024 12:27:59 PM/dawna PATIENTS: You will also receive a letter with your examination results in an easy to read format. If you have questions about your results, please contact your referring provider. Narrative 02/18/2024 1:55 PM SPECIALTY SALES CONSULTANT For Patients: As a result of the Century Cures Act, medical imaging exams and procedure reports are released immediately into your electronic medical record. You may view this report before your referring provider. If you have questions, please contact your health care provider. BILATERAL DIGITAL SCREENING MAMMOGRAM WITH TOMOSYNTHESIS AND COMPUTER-AIDED DETECTION, 02/18/2024 INDICATION: Screening. TECHNIQUE: BILATERAL screening mammogram. Tomosynthesis and computer-aided detection utilized. COMPARISON: 02/10/2023. FINDINGS: The breasts are almost entirely fatty. There is a new oblong nodular density at 6 o'clock position 7.5 cm from the nipple on the craniocaudal view. No other suspicious mass, architectural distortion or malignant calcification in either breast. Love Mcdaniel MD MAMMO Final Resu lt * (ABNORMAL) LIPID PANEL W REFLEX MEASURED LDL (12/10/2023 12:06 PM CDT) CHOLESTEROL, TOTAL 175 <200 mg/dL [facility] HDL CHOLESTEROL 49(L) > OR = 50 mg/dL [facility] TRIGLYCERIDES 360(H) <150 mg/dL [facility] Comment: If a non-fasting specimen was collected, consider repeat triglyceride testing on a fasting specimen if clinically indicated. Marlo et al. J. of Clin. Lipidol. 2015;9:129-169. LDL-CHOLESTEROL 83 mg/dL (calc) [facility] Comment: Reference range: <100 Desirable range <100 mg/dL for primary prevention; <70 mg/dL for patients with CHD or diabetic patients with > or = 2 CHD risk factors. LDL-C is now calculated using the Jenelle calculation, which is a validated novel method providing better accuracy than the Friedewald equation in the estimation of LDL-C. John SS et al. FLAKO. 2013;310(19): 1395-7001 (http://education.Missionly/faq/GQS010) CHOL/HDLC RATIO 3.6 <5.0 (calc) [facility] NON HDL CHOLESTEROL 126 <130 mg/dL (calc) [facility] Comment: For patients with diabetes plus 1 major ASCVD risk factor, treating to a non-HDL-C goal of <100 mg/dL (LDL-C of <70 mg/dL) is considered a therapeutic option. Blood BLOOD SPECIMEN / Unknown 12/10/2023 12:06 PM CDT 12/10/2023 12:07 PM CDT Narrative [facility] - 12/11/2023 4:19 AM CDT FASTING:NO FASTING: NO Love Mcdaniel MD CHEMISTRY Final Resu lt Plain [facility] [address] [place] [address], [facility] [address] [place] [address] * ANTI HCV (12/18/2010 3:43 PM CDT) [facility] ANTI HCV Non-reacti ve [facility] Blood specimen (specimen) BLOOD SPECIMEN / Unknown 12/18/2010 3:43 PM CDT 12/18/2010 2:27 PM CDT us Natan Ragland MD SEND OUTS Final Re sult [facility] [place]NAL ZIP [address] [address] * ANTI HIV 1/2 (12/18/2010 3:43 PM CDT) ANTI HIV 1/2 Non-reacti ve [facility] Blood specimen (specimen) BLOOD SPECIMEN / Unknown 12/18/2010 3:43 PM CDT 12/18/2010 2:27 PM CDT us Natan Ragland MD SEND OUTS Final Re sult [facility] INTERNAL ZIP [address] [address] from Last 3 Months or Most Recently Relevant to Health Maintenance Insurance [employer] Advance Directives * Full Code (Latest Code Status on File) Date Activated Date Inactivated Comments 03/11/2024 8:55 AM 03/11/2024 5:15 PM Question Answer Comments Code Status Discussion: Unable to Assess Preferences, Provider to review later * Full Code Date Activated Date Inactivated Comments 03/31/2023 9:54 AM 03/31/2023 1:54 PM Question Answer Comments Code Status Discussion: Discussed * Full Code Date Activated Date Inactivated Comments 12/26/2020 11:54 AM 12/26/2020 6:45 PM Question Answer Comments Code Status Discussion: Not Discussed Care Teams [employer] C[employer] Frame Builder Relationship Specialty Start Date End Date Love Mcdaniel MD [address] [facility] [place] [address] PCP - General Family Practice 05/23/23 Gretchen Vyas, PharmD Pharmacology 04/29/22 Kelly Blount, RN [address] [place], [place] [address] [address] Nurse Navigator - Oncology Registered Nurse 02/24/24
[2024-04-12 09:50] VITALS: BMI 27.8
[2024-04-12 09:51] LABS: Ur HCG Qualitative* Negative (Negative)
[2024-04-12 09:52] VITALS: BP 114/77; PULSE 101; RESP 20; TEMP 36.7; O2SAT 97
[2024-04-12] MEDS: LACTATED RINGERS 1000 ML 1,000 ML 100 ML IV (10:00)
[2024-04-12] MEDS: SODIUM CHLORIDE 0.9 % (FLUSH) 10 ML SYRINGE IVF (10:03)
[2024-04-12] MEDS: CEFAZOLIN 1 GM inj IVP (10:10)
--- NOTE | 2024-04-12 10:16 | P.GSCN_ITS ---
History of Present Illness Consult details Date Seen: 04/12/24 Consult date: 04/12/24 Narrative: The patient is a 48-year-old female who is here today for port placement. 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 She underwent lumpectomy and axillary sentinel lymph node biopsy. Oncotype showed a recurrence score of 29 and chemotherapy was recommended. She will undergo radiation after completing chemotherapy. Today she is feeling well. No chest pain or shortness of breath. [facility] Medical History (Updated 04/12/24 @ 10:41 by Mary Alice Beach MD) Hypertriglyceridemia ?E78.1 - Pure hyperglyceridemia (ICD-10) GERD (gastroesophageal reflux disease) ?K21.9 - Gastro-esophageal reflux disease without esophagitis (ICD-10) PCOS (polycystic ovarian syndrome) ?E28.2 - Polycystic ovarian syndrome (ICD-10) OCD (obsessive compulsive disorder) ?F42.9 - Obsessive-compulsive disorder, unspecified (ICD-10) Meniere disease ?H81.09 - Meniere's disease, unspecified ear (ICD-10) Kidney stone ?N20.0 - Calculus of kidney (ICD-10) Hypertension ?I10 - Essential (primary) hypertension (ICD-10) Diabetes type 2 ?E11.9 - Type 2 diabetes mellitus without complications (ICD-10) Surgical History (Updated 04/12/24 @ 10:41 by Mary Alice Beach MD) History of ?Z98.891 - History of uterine scar from previous surgery (ICD-10) H/O shoulder surgery ?Z98.890 - Other specified postprocedural states (ICD-10) History of hip surgery ?Z98.890 - Other specified postprocedural states (ICD-10) History of tonsillectomy ?Z90.89 - Acquired absence of other organs (ICD-10) 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 She does not smoke. Meds Home Medications and Allergies Home Medications ?Medication ?Instructions ?Recorded ?Confirmed ?Type acetaminophen 325 mg tablet mg PO 04/07/24 04/07/24 History atorvastatin 80 mg tablet mg PO DAILY 04/07/24 04/07/24 History buspirone 30 mg tablet mg PO 04/07/24 04/07/24 History duloxetine 30 mg capsule,delayed 90 mg PO DAILY 04/07/24 04/12/24 History release fluticasone propionate 50 intranasal PRN 04/07/24 04/07/24 History mcg/actuation nasal spray,suspension glipizide 5 mg tablet, extended mg PO 04/07/24 04/07/24 History release 24 hr hydrochlorothiazide 25 mg tablet mg PO DAILY 04/07/24 04/07/24 History ibuprofen 600 mg tablet mg PO 3XD PRN 04/07/24 04/07/24 History levothyroxine 100 mcg tablet mcg PO DAILY 04/07/24 04/07/24 History magnesium L-threonate 3 cap PO DAILY 04/07/24 History magnesium glycinate 100 mg (as 300 mg PO QDAY 04/07/24 04/07/24 History glycinate) tablet metformin 500 mg tablet,extended mg PO 04/07/24 04/07/24 History release 24 hr trazodone 50 mg tablet mg PO 04/07/24 04/07/24 History triamcinolone acetonide 0.1 % applic topical BID 04/07/24 04/07/24 History topical cream Allergies Allergy/AdvReac Type Severity Reaction Status Date / Time No Known Drug Allergies Allergy Verified 04/12/24 09:28 Exam Narrative: Exam Narrative: General appearance: Alert, cooperative, and in no distress Eyes: PERRLA, eye lids clear, and sclera white HENT Head: Normocephalic Ears: External ears normal Pulmonary: Breathing nonlabored on room air Chest: No scars on her upper chest. Cardiovascular Heart: Regular rate Extremities: warm and well perfused Musculoskeletal: Extremities: Upper: Both upper extremities have normal joint range of motion and intact strength. Lower: Both lower extremities have normal joint range of motion and intact strength. Skin: Normal skin color, texture, and turgor. Neurologic: No focal deficits Psychiatric: Alert, oriented, cooperative, normal affect. Const: Vital Signs, click to edit/add: Vital Signs - 24 hr 04/12/24 09:52 Temperature 98.1 F Pulse Rate 101 H Respiratory Rate 20 Blood Pressure 114/77 Pulse Oximetry 97 Oxygen Delivery Me thod Room Air Progress Note:A&P Assessment and plan (1) Breast cancer: Status: Acute Plan The patient is a 48-year-old female with right-sided invasive ductal carcinoma, now status post lumpectomy. She is here today for port placement for adjuvant chemotherapy for an Oncotype score of 29. We discussed risks and benefits as well as recovery and she has agreed to proceed.
--- NOTE | 2024-04-12 10:30 | CRLHL7_ITS ---
For Patients: As a result of the Century Cures Act, medical imaging exams and procedure reports are released immediately into your electronic medical record. You may view this report before your referring provider. If you have questions, please contact your health care provider. Indication: Port-A-Cath placement Technique: One fluoroscopic image of the chest. Fluoroscopic time of 30.5 seconds. IMPRESSION: Fluoroscopic guidance for Port-A-Cath placement. Dictated by Natan Ring MD @ 04/12/2024 12:03:27 PM (Electronically Signed)
--- NOTE | 2024-04-12 10:46 | PM.GSPRC ---
Operative Note Date of procedure: 04/12/24 Pre-op diagnosis: Right-sided, hormone positive invasive ductal breast cancer Post-op diagnosis: Same Type of Procedure: Left internal jugular power port placement with ultrasound and fluoroscopic guidance Indications: The patient is a 48-year-old female who was recently diagnosed with left-sided breast cancer. Chemotherapy was recommended by her oncologist based on the tumor type and recurrence score. After discussion of risks and benefits of port placement she agreed to proceed. Procedure Description: After discussing the risks and benefits of the procedure, the patient signed informed consent.? The operative site was marked and the patient was brought to the operating room and placed on the operating table in supine position.? Care was taken to pad the patient's pressure points.?? The patient was then given sedation by anesthesia.?? The operative site was then prepped and draped in the usual sterile fashion.? A time-out was then performed. The patient's left internal jugular vein was visualized using ultrasound. Local anesthetic was injected into the skin overlying the vein. This was accessed percutaneously using ultrasound guidance. Using Seldinger technique, a guidewire was threaded through the needle. Fluoroscopy was used to ensure the wire slid down into the SVC. A skin saeed was made around the wire. Next, local anesthetic was injected into the skin below the clavicle and along the proposed tract to the neck incision. A skin incision was then made with a 15 blade and a pocket created in the subcutaneous tissue with cautery. A tunneler was then used to thread the catheter from the chest wall pocket to the neck incision. Once this was done fluoroscopy was brought into the field again. Over the wire the tract was dilated using fluoroscopy. The wire and the dilator were then removed leaving the sheath in the vein. Through this, the catheter was threaded. Using fluoroscopy, the catheter was positioned into the distal SVC. The catheter was noted to flush and aspirate easily. The catheter was then connected to the port. The port was placed in the pocket and secured in place with 2 0 Prolene sutures. It was noted to flush and aspirate easily. This was then locked with heparinized saline. The skin was closed with absorbable suture. Glue was then applied. Instrument sponge and needle counts were correct at the end of the case. The patient was woken and taken to the recovery area in stable condition. ? The patient tolerated the procedure well. Findings: Left IJ power port placed in the low SVC Implants: Power port Anesthesia: MAC Surgeon: Mary Alice Beach MD Estimated blood loss (mL): 5 Condition: stable Disposition: same day
[2024-04-12] MEDS: LIDOCAINE 1% MDV 20 ML INJECTION (11:20)
[2024-04-12] MEDS: HEPARIN 500 UNIT/5 ML SYRINGE IVF (11:20)
[2024-04-12] MEDS: 0.9% SODIUM CHL 50 ML VIAL INJECTION (11:20)
[2024-04-12] MEDS: BUPIVACAINE 0.5% 30 ML INJECTION (11:20)
--- NOTE | 2024-04-12 11:24 | CRLHL7_ITS ---
For Patients: As a result of the Century Cures Act, medical imaging exams and procedure reports are released immediately into your electronic medical record. You may view this report before your referring provider. If you have questions, please contact your health care provider. INDICATION: Postop for port placement TECHNIQUE: 1 view chest radiograph COMPARISON: Same day fluoroscopic images FINDINGS: Devices: Left IJ chest port distal tip is at the superior cavoatrial junction. Lung volumes are moderate. No focal or diffuse opacities. No pleural effusion. No pneumothorax. Heart size is normal. Surgical clips right axilla. IMPRESSION: The left IJ chest port is in good radiographic position with the tip at the superior cavoatrial junction. No placement complication seen. Dictated by Ankita Rai MD @ 04/12/2024 11:52:24 AM (Electronically Signed)
[2024-04-12 11:30] VITALS: BP 117/70; PULSE 92; RESP 20; TEMP 36.2; O2SAT 97
--- NOTE | 2024-04-12 11:33 | P.ANES_ITS ---
Anesthesia Charges Start Date/Time Anesthesia Start Date: 04/12/24 Anesthesia Start Time: 10:30 Stop Date/Time Anesthesia Stop Date: 04/12/24 Anesthesia Stop Time: 11:30 Coding CPT Codes CPT Codes: ANESTH VASCULAR ACCESS - 09816 ([id number]) P2 - PATIENT W/MILD SYST DISEASE, QK - HOME INSPECTOR 2-4 CNCRNT ANES PROC, QX - JOB PRESS FEEDER SVC W/ MD MED DIRECTION
--- NOTE | 2024-04-12 11:33 | W.ANESCHARGE ---
Anesthesia Charges Start Date/Time Anesthesia Start Date: 04/12/24 Anesthesia Start Time: 10:30 Stop Date/Time Anesthesia Stop Date: 04/12/24 Anesthesia Stop Time: 11:30 Coding CPT Codes CPT Codes: ANESTH VASCULAR ACCESS - 63109 ([id number]) P2 - PATIENT W/MILD SYST DISEASE, QK - WASTEWATER PLANT CIVIL ENGINEER 2-4 CNCRNT ANES PROC, QX - GLUE REEL OPERATOR SVC W/ MD MED DIRECTION
--- NOTE | 2024-04-12 11:35 | P.ANES_ITS ---
Anesthesia Charges Start Date/Time Anesthesia Start Date: 04/12/24 Anesthesia Start Time: 10:30 Stop Date/Time Anesthesia Stop Date: 04/12/24 Anesthesia Stop Time: 11:30 Coding CPT Codes CPT Codes: ANESTH VASCULAR ACCESS - 21363 ([id number]) QK - CLERK TELEGRAPH SERVICE 2-4 CNCRNT ANES PROC, QX - INFORMATION TECHNOLOGY DATA ANALYST SVC W/ MD MED DIRECTION, P2 - PATIENT W/MILD SYST DISEASE
--- NOTE | 2024-04-12 11:35 | W.ANESCHARGE ---
Anesthesia Charges Start Date/Time Anesthesia Start Date: 04/12/24 Anesthesia Start Time: 10:30 Stop Date/Time Anesthesia Stop Date: 04/12/24 Anesthesia Stop Time: 11:30 Coding CPT Codes CPT Codes: ANESTH VASCULAR ACCESS - 27414 ([id number]) QK - DIP DYER 2-4 CNCRNT ANES PROC, QX - FAILURE ANALYSIS TECHNICIAN SVC W/ MD MED DIRECTION, P2 - PATIENT W/MILD SYST DISEASE
[2024-04-12 11:45] VITALS: BP 131/73; PULSE 93; RESP 20; O2SAT 97
--- NOTE | 2024-04-12 11:51 | SUR.PHASEII ---
Xray taken, placement verified
[2024-04-12 12:00] VITALS: BP 130/85; PULSE 95; RESP 20; O2SAT 95
[2024-04-12 12:17] VITALS: BP 137/80; PULSE 93; RESP 20; TEMP 36.4; O2SAT 97
== END 2024-04-12 12:29 | disposition home or self-care (01) ==
PROVIDERS: Anesthesiology; PCP Family Medicine; Visit Provider Surgery
PROC: (CPT 36561; principal; 2024-04-12 10:30)
DX: Z45.2 Encounter for adjustment and management of vascular access device (principal); C50.911 Malignant neoplasm of unspecified site of right female breast; Z17.32 Human epidermal growth factor receptor 2 negative status; Z17.0 Estrogen receptor positive status [ER+]; Z17.21 Progesterone receptor positive status; E11.9 Type 2 diabetes mellitus without complications; I10 Essential (primary) hypertension
CPT/HCPCS: 36561; 00532; 71045; 76998; 81025; 82962; J2003; C1788; J0665; J0690; J1642; J2250; J2405; J2704; J3490; J7120

== ENCOUNTER 2024-04-27 14:23 | Outpatient (CLI) | payer OTHER, SELFPAY ==
[2024-04-27 22:21] LABS: PCR FLU A Negative PCR FLU A (Negative); PCR FLU B Negative PCR FLU B (Negative); SARS PCR* Negative SARS-CoV-2 (Negative)
== END 2024-04-27 14:24 | disposition home or self-care (01) ==
PROVIDERS: PCP Family Medicine; Visit Provider Nurse Practitioner Family
DX: R50.9 Fever, unspecified (principal); M54.50 Low back pain, unspecified; R82.90 Unspecified abnormal findings in urine
CPT/HCPCS: 80053; 81001; 85025; 85651; 86140; 87040; 87086; 87631

== ENCOUNTER 2024-05-24 07:43 | Outpatient (CLI) | payer OTHER, SELFPAY | END 2024-05-24 07:44 | disposition home or self-care (01) | PROVIDERS: PCP Nurse Practitioner Family; Visit Provider Physician Assistant | DX: E78.1 Pure hyperglyceridemia (principal); I10 Essential (primary) hypertension; E03.9 Hypothyroidism, unspecified; E11.9 Type 2 diabetes mellitus without complications; E78.2 Mixed hyperlipidemia; F41.9 Anxiety disorder, unspecified; F42.9 Obsessive-compulsive disorder, unspecified; R00.0 Tachycardia, unspecified | CPT/HCPCS: 80053; 80061; 80076; 82043; 82570; 82607; 84443 ==

== ENCOUNTER 2024-06-09 15:32 | Outpatient (CLI) | payer OTHER, SELFPAY ==
--- NOTE | 2024-06-09 15:30 | CRLHL7_ITS ---
For Patients: As a result of the Century Cures Act, medical imaging exams and procedure reports are released immediately into your electronic medical record. You may view this report before your referring provider. If you have questions, please contact your health care provider. XR DXA Bone Mineral Density (BMD) Reason for exam: Baseline before starting endocrine therapy. Current height (inches): 63.0 Weight (lbs.): 158.0 Menopause age: 43 Ethnicity: White 1. Have you had a previous hip or vertebral fracture? No. 2. Have you had any fractures during your adult life which did not result from significant trauma (e.g., auto accident)? No. 3. Did either of your parents have a hip fracture? Yes. 4. Do you smoke? No. 5. Have you ever taken Glucocorticoids? No. 6. Do you have rheumatoid arthritis? No. 7. Do you have secondary osteoporosis? No. 8. Do you drink 3 or more alcoholic drinks per day? No. 9. Are you being treated for osteoporosis? No. 10. Have you ever taken any of the following medications: Actonel, Evista, Fosamax, Miacalcin, Reclast, Boniva, Forteo, HRT (i.e., estrogen/hormone therapy), Protelos, Prolia, Vitamin D, Calcium, other ??? please specify. ANSWER: No. 11. Do you have any of the following medical conditions: Anorexia or bulimia, asthma or emphysema, end stage renal disease, hyperparathyroidism, any seizure disorders, cancer, inflammatory bowel diseases, hysterectomy, other ??? please specify. ANSWER: Yes; cancer. 12. What was your maximum height (inches)? 63. 13. Do you perform weightbearing exercise regularly? No. 14. Do you regularly consume dairy products? Yes. 15. Do you drink caffeinated beverages? Yes. 16. At what age did your period start? 10. 17. Are you premenopausal? No. 18. How many full-term pregnancies have you had? 1. 19. Have you ever missed your period for more than 6 months in a row (not including or menopause)? No. TECHNIQUE: Bone mineral density study was performed using the [employer]. FINDINGS: The results of the study expressed as bone mineral density (BMD) are as follows: Lumbar Spine L1 to L4: BMD: 1.101 g/cm2. T-score: 0.5. Z-score: 1.3. Neck Left: BMD: 0.856 g/cm2. T-score: 0.1. Z-score: 0.8. Right: BMD: 0.922 g/cm2. T-score: 0.7. Z-score: 1.4. Total Left: BMD: 1.038 g/cm2. T-score: 0.8. Z-score: 1.3. Right: BMD: 1.093 g/cm2. T-score: 1.2. Z-score: 1.7. IMPRESSION: Normal bone density. NATAN AGUIAR M.D. Diagnostic Radiologist [email or web address] Transcribed: 12:[address]/Dictated by: Natan Aguiar MD @ 06/10/2024 9:39:00 AM (Electronically Signed)
== END 2024-06-09 15:33 | disposition home or self-care (01) ==
LOC: RAD 15:33
PROVIDERS: PCP Nurse Practitioner Family; Visit Provider Physician Assistant
DX: C50.911 Malignant neoplasm of unspecified site of right female breast (principal); Z79.811 Long term (current) use of aromatase inhibitors
CPT/HCPCS: 77080

== ENCOUNTER 2024-07-16 09:59 | Outpatient (CLI) | payer OTHER, SELFPAY ==
[2024-07-16 16:10] LABS: Strep A DNA Probe* NOT DETECTED (Not Detectd)
[2024-07-16 16:23] LABS: PCR FLU A Negative PCR FLU A (Negative); PCR FLU B Negative PCR FLU B (Negative); PCR RSV Negative PCR RSV (Negative); SARS PCR* Negative SARS-CoV-2 (Negative)
== END 2024-07-16 10:00 | disposition home or self-care (01) ==
PROVIDERS: PCP Nurse Practitioner Family; Visit Provider Nurse Practitioner Family
DX: J02.9 Acute pharyngitis, unspecified (principal); R50.9 Fever, unspecified; R05.9 Cough, unspecified
CPT/HCPCS: 81001; 87040; 87086; 87631; 87651

== ENCOUNTER 2024-08-06 18:31 | Outpatient (CLI) | payer OTHER, SELFPAY | END 2024-08-06 18:32 | disposition home or self-care (01) | PROVIDERS: PCP Nurse Practitioner Family; Visit Provider Nurse Practitioner Family | DX: R00.0 Tachycardia, unspecified (principal); E78.1 Pure hyperglyceridemia; I10 Essential (primary) hypertension; E03.9 Hypothyroidism, unspecified; R79.89 Other specified abnormal findings of blood chemistry; E78.2 Mixed hyperlipidemia; E11.9 Type 2 diabetes mellitus without complications; R11.2 Nausea with vomiting, unspecified | CPT/HCPCS: 80048; 80061; 82607; 82728; 83540; 83550; 83735; 84100; 85025 ==

== ENCOUNTER 2024-08-11 09:34 | Outpatient (CLI) | payer OTHER, SELFPAY | END 2024-08-11 09:35 | disposition home or self-care (01) | LOC: RAD 09:34 | PROVIDERS: PCP Nurse Practitioner Family; Visit Provider Internal Medicine | DX: R00.0 Tachycardia, unspecified (principal) | CPT/HCPCS: 93306 ==

== ENCOUNTER 2024-09-22 13:30 | Outpatient (RCR) | payer OTHER, SELFPAY ==
[2024-04-14 14:25] LABS: Hematocrit* 42.7 % (33.0-51.0); Hemoglobin* 14.6 gm/dL (12.0-16.0); Immature Granulocytes Abs Auto 0.01 K/uL (0.00-0.30); Immature Granulocytes Pct Auto 0.1 %; Lymphocytes Absolute Auto 3.21 K/uL (0.90-2.90); Mean Corpuscular HGB Conc 34 gm/dL (32-36); Mean Corpuscular Hemoglobin 31 pg (26-34); Mean Corpuscular Volume 90 fL (80-100); RDW Coefficient of Variation % 11.8 % (11.5-15.5); Red Blood Count* 4.74 m/uL (4.00-5.20); White Blood Count* 8.93 K/uL (4.50-11.00)
[2024-04-14 14:29] LABS: Slide Review Reflex No
[2024-04-14 14:32] LABS: Albumin* 4.6 g/dL (3.3-5.0); Chloride* 103 mmol/L (96-114); Potassium* 4.4 mmol/L (3.6-5.1); Sodium* 139 mmol/L (135-149)
[2024-04-14 14:35] LABS: Alanine Aminotransferase* 33 U/L (4-35); Alkaline Phosphatase* 60 U/L (40-150); Anion Gap 8 mEq/L (7-15); Aspartate Amino Transferase* 34 U/L (12-35); Bilirubin Total* 0.5 mg/dL (0.1-1.5); Blood Urea Nitrogen* 13 mg/dL (7-30); Calcium* 9.7 mg/dL (8.4-10.6); Carbon Dioxide* 28 mmol/L (20-32); Creatinine* 0.6 mg/dL (0.5-1.5); Est. Creatinine Clearance* 92.79; Estimated Glomerular Filt Rate 109 ml/min; Glucose* 141 mg/dL (60-115); Total Protein* 7.7 g/dL (6.0-8.3)
--- NOTE | 2024-04-14 14:41 | ONC.NURNOTE ---
I met with patient for chemotherapy teaching. The contents of the chemotherapy binder were reviewed. Side effects of treatment were discussed at length. Patient instructed what to report to provider and how to contact the provider during and after hours. We will plan to initiate treatment 04/21.
--- NOTE | 2024-04-19 16:19 | URNOTE ---
Addendum entered by Carmen Mccrary RN 04/19/24 16:26: Auth is valid 04/21/2024-10/17/2024 Original Note: Cyclophosphamide (J9073), Docetaxel (J9171) and Udenyca (Q511) have been approved per UMR. Case # [id number] Aloxi (J2469) does not require PA.
[2024-04-21 08:37] VITALS: BP 134/79; PULSE 121; RESP 16; TEMP 36.6; O2SAT 97
[2024-04-21] MEDS: dexAMETHasone 20 MG in 0.9 % SODIUM CHLORIDE 100 ml 100 ML 408 MG IVPB (09:39)
[2024-04-21] MEDS: DOCEtaxeL 135 MG, TUBING SECONDARY 1 EACH in 0.9 % SODIUM CHL 250 ml Excel 250 ML 256.75 MG IVPB (10:20)
[2024-04-21] MEDS: PEGFILGRASTIM-CBQV (ONBODY) 6 MG/0.6 ML SUBCUT (10:24)
[2024-04-21] MEDS: cycloPHOSphamide 1,000 MG, TUBING SECONDARY 1 EACH in 0.9 % SODIUM CHLORIDE 250 ml 250 ML 510 MG IV (11:36)
[2024-04-21] MEDS: HEPARIN 500 UNIT/5 ML SYRINGE IVF (12:15)
[2024-04-21] MEDS: SODIUM CHLORIDE 0.9 % (FLUSH) 10 ML SYRINGE IVF (12:15)
[2024-04-21] MEDS: 0.9 % SODIUM CHLORIDE 500 ML IV (12:15)
--- NOTE | 2024-04-21 16:22 | ONC.NURNOTE ---
Addendum entered by Lauren Diaz 04/21/24 16:53: After discussion with both our PRINTING SERVICES COORDINATOR Keesha Dixon and the patients PCP, patient was given the following instructions. 1. Low carb diet 2. Push fluids 3. If blood sugar is above 500 or she has mental status changes, she should be seen immediately 4. Patients PCP will call her tomorrow to formulate a plan moving forward. 5. We will discuss dexamethasone dosing at her next appointment. At the time of the return call, patients blood sugar had improved to 352. Patient verbalizes understanding of plan. Original Note: Patient called to discuss elevated blood sugars. Patient states that after she left her chemotherapy appointment, she stopped at [employer] and had a cheeseburger and fries. When she checked her blood sugar a few hours later, it registered at 487. She took her Glipizide 5mg and Metformin 1000mg immediately and at last check her blood sugar is 458. Patient states she feels fine and is 100% functional but thought that she should alert us to these findings. I assured patient I would discuss with our provider and return her call.
--- NOTE | 2024-04-22 10:04 | ONC.NURNOTE ---
Call to patient for an update on her condition. She states she is doing pretty good. Her blood sugars have returned to a normal range. At last check she was 90. Patient had restless sleep from the steroids. Patient is taking her antiemetics as directed. She denies any additional questions or concerns.
--- NOTE | 2024-04-26 08:40 | ONC.NURNOTE ---
Patient called [facility] to report a fever over the weekend. She states that starting Friday night she developed body aches and fatigue. By Friday night, she spiked a fever of 100.4. She had no other symptoms (cough, sore throat, congestion, dysuria, etc.) and was concerned about going to the ER and picking up the flu or COVID. She tested COVID negative at home. Friday was better until evening and her temperature spiked again to around 100.4. She had been taking Tylenol Arthritis (650 mg of Acetaminophen) about every 12 hours. This morning her temperature is 98.4 and she denies any night sweats or chills overnight. We discussed the importance of having a fever of 100.4 or greater evaluated while she is on chemotherapy. Patient instructed to monitor closely today and be evaluated if her fever reaches 100.4 or higher.
--- NOTE | 2024-04-27 09:15 | ONC.NURNOTE ---
Pt called reporting lower back and tail bone spasms overnight. She is taking Tylenol 650mg q 6 hrs and reports its not lasting long enough. T max 100.0 last night, is 99 this morning. Pt notes she has no history of back pain issues, muscle spasms, etc. Reviewed that body aches and pain is common with this chemotx regimen however muscle spasms is a change. Recommended she be seen by PCP to work up change in symptoms; pt asked about possibility of muscle relaxers, reviewed that a PCP may recommend that once they have worked up the cause of this new pain. Encouraged pt to use ice, to break up periods of rest with movement around the house and stretching, cont to monitor temp and to see a PCP. Pt verbalizes understanding.
--- NOTE | 2024-04-30 12:30 | ONC.NURNOTE ---
Patient called [facility] to discuss a new rash to her bilateral upper arms, right > left. She states it started last night on the right arm only and now has spread to the left. She describes it as mildly itchy. Patient sent a picture and this was reviewed by our BRINE MAKER Keesha Dixon. She recommends: 1. hydrocortisone 1% per package directions. 2. Avoid hot showers, strong soaps and lotions. Keep skin moisturized. 3. Diphenhydramine 25mg PO q 6 hours if needed for itching 4. update us on Friday how she is doing.
[2024-05-10 14:56] LABS: Hematocrit* 38.4 % (33.0-51.0); Hemoglobin* 13.0 gm/dL (12.0-16.0); Immature Granulocytes Pct Auto 1.6 %; Mean Corpuscular HGB Conc 34 gm/dL (32-36); Mean Corpuscular Hemoglobin 31 pg (26-34); Mean Corpuscular Volume 91 fL (80-100); RDW Coefficient of Variation % 12.8 % (11.5-15.5); Red Blood Count* 4.24 m/uL (4.00-5.20); White Blood Count* 14.71 K/uL (4.50-11.00)
[2024-05-10 15:18] LABS: Albumin* 4.7 g/dL (3.3-5.0); Chloride* 98 mmol/L (96-114)
[2024-05-10 15:19] LABS: Potassium* 4.2 mmol/L (3.6-5.1); Sodium* 137 mmol/L (135-149)
[2024-05-10 15:21] LABS: Anion Gap 14 mEq/L (7-15); Aspartate Amino Transferase* 33 U/L (12-35); Bilirubin Total* 0.5 mg/dL (0.1-1.5); Blood Urea Nitrogen* 14 mg/dL (7-30); Carbon Dioxide* 25 mmol/L (20-32); Creatinine* 0.5 mg/dL (0.5-1.5); Est. Creatinine Clearance* 111.35; Estimated Glomerular Filt Rate 114 ml/min
[2024-05-10 15:22] LABS: Alanine Aminotransferase* 46 U/L (4-35); Alkaline Phosphatase* 69 U/L (40-150); Calcium* 9.5 mg/dL (8.4-10.6); Glucose* 150 mg/dL (60-115); Total Protein* 7.4 g/dL (6.0-8.3)
[2024-05-10 15:24] LABS: Immature Granulocytes Abs Auto 0.20 K/uL (0.00-0.30); Lymphocytes Absolute Auto 3.30 K/uL (0.90-2.90); Slide Review Reflex No
[2024-05-12 09:07] VITALS: BP 102/69; PULSE 102; RESP 16; TEMP 36.4; O2SAT 96
[2024-05-12] MEDS: SODIUM CHLORIDE 0.9 % (FLUSH) 10 ML SYRINGE IVF ×2 (09:27→12:28)
[2024-05-12] MEDS: 0.9 % SODIUM CHLORIDE 500 ML IV (09:28)
[2024-05-12] MEDS: dexAMETHasone 20 MG in 0.9 % SODIUM CHLORIDE 100 ml 100 ML 408 MG IVPB (09:31)
--- NOTE | 2024-05-12 09:32 | ONC.NURNOTE ---
Patient will have her 10 day post LFT labs drawn at the [facility] on 05/24.
[2024-05-12] MEDS: DOCEtaxeL 135 MG, TUBING SECONDARY 1 EACH in 0.9 % SODIUM CHL 250 ml Excel 250 ML 257 MG IVPB (10:30)
[2024-05-12] MEDS: cycloPHOSphamide 1,000 MG, TUBING SECONDARY 1 EACH in 0.9 % SODIUM CHLORIDE 250 ml 250 ML 510 MG IV (11:42)
[2024-05-12] MEDS: PEGFILGRASTIM-CBQV (ONBODY) 6 MG/0.6 ML SUBCUT (12:26)
[2024-05-12] MEDS: HEPARIN 500 UNIT/5 ML SYRINGE IVF (12:28)
[2024-05-31 15:20] LABS: Hematocrit* 35.3 % (33.0-51.0); Hemoglobin* 11.9 gm/dL (12.0-16.0); Immature Granulocytes Pct Auto 1.0 %; Mean Corpuscular HGB Conc 34 gm/dL (32-36); Mean Corpuscular Hemoglobin 31 pg (26-34); Mean Corpuscular Volume 93 fL (80-100); RDW Coefficient of Variation % 14.4 % (11.5-15.5); Red Blood Count* 3.81 m/uL (4.00-5.20); White Blood Count* 12.56 K/uL (4.50-11.00)
[2024-05-31 15:23] LABS: Immature Granulocytes Abs Auto 0.10 K/uL (0.00-0.30); Lymphocytes Absolute Auto 2.70 K/uL (0.90-2.90); Slide Review Reflex No
[2024-05-31 15:24] LABS: Albumin* 4.5 g/dL (3.3-5.0); Chloride* 103 mmol/L (96-114); Potassium* 3.9 mmol/L (3.6-5.1); Sodium* 139 mmol/L (135-149)
[2024-05-31 15:27] LABS: Alanine Aminotransferase* 37 U/L (4-35); Alkaline Phosphatase* 68 U/L (40-150); Anion Gap 12 mEq/L (7-15); Aspartate Amino Transferase* 31 U/L (12-35); Bilirubin Total* 0.4 mg/dL (0.1-1.5); Blood Urea Nitrogen* 12 mg/dL (7-30); Carbon Dioxide* 24 mmol/L (20-32); Creatinine* 0.6 mg/dL (0.5-1.5); Est. Creatinine Clearance* 92.79; Estimated Glomerular Filt Rate 109 ml/min; Total Protein* 7.0 g/dL (6.0-8.3)
[2024-05-31 15:28] LABS: Calcium* 9.2 mg/dL (8.4-10.6); Glucose* 125 mg/dL (60-115)
[2024-05-31 15:34] LABS: HCG Qualitative Serum* Negative (Negative)
[2024-06-02 09:49] VITALS: BP 113/73; PULSE 101; RESP 20; TEMP 35.9; O2SAT 96
[2024-06-02] MEDS: dexAMETHasone 20 MG in 0.9 % SODIUM CHLORIDE 100 ml 100 ML 408 MG IVPB (10:40)
--- NOTE | 2024-06-02 10:56 | ONC.NURNOTE ---
Met with patient in the infusion center. At the request of Yamile Farley PA-C, patient informed of plans to obtain a baseline DEXA scan in preparation for discussing endocrine therapies. Also discussed radiation oncology consult after chemotherapy completion on 06/23. Referral and records faxed to [facility]. Patient verbalizes understanding of plan.
[2024-06-02] MEDS: DOCEtaxeL 135 MG, TUBING SECONDARY 1 EACH in 0.9 % SODIUM CHL 250 ml Excel 250 ML 257 MG IVPB (11:46)
[2024-06-02] MEDS: cycloPHOSphamide 1,000 MG, TUBING SECONDARY 1 EACH in 0.9 % SODIUM CHLORIDE 250 ml 250 ML 255 MG IV (12:56)
[2024-06-02] MEDS: SODIUM CHLORIDE 0.9 % (FLUSH) 10 ML SYRINGE IVF (13:55)
[2024-06-02] MEDS: HEPARIN 500 UNIT/5 ML SYRINGE IVF (13:55)
[2024-06-02] MEDS: 0.9 % SODIUM CHLORIDE 500 ML IV (13:55)
[2024-06-23 08:37] LABS: Hematocrit* 34.0 % (33.0-51.0); Hemoglobin* 11.3 gm/dL (12.0-16.0); Immature Granulocytes Pct Auto 1.0 %; Mean Corpuscular HGB Conc 33 gm/dL (32-36); Mean Corpuscular Hemoglobin 32 pg (26-34); Mean Corpuscular Volume 96 fL (80-100); RDW Coefficient of Variation % 15.7 % (11.5-15.5); Red Blood Count* 3.54 m/uL (4.00-5.20); White Blood Count* 12.85 K/uL (4.50-11.00)
[2024-06-23 08:45] LABS: Immature Granulocytes Abs Auto 0.10 K/uL (0.00-0.30); Lymphocytes Absolute Auto 2.30 K/uL (0.90-2.90); Slide Review Reflex No
[2024-06-23 08:49] LABS: Albumin* 4.5 g/dL (3.3-5.0); Chloride* 102 mmol/L (96-114); Potassium* 3.9 mmol/L (3.6-5.1); Sodium* 140 mmol/L (135-149)
[2024-06-23 08:52] LABS: Alanine Aminotransferase* 37 U/L (4-35); Alkaline Phosphatase* 90 U/L (40-150); Anion Gap 11 mEq/L (7-15); Aspartate Amino Transferase* 32 U/L (12-35); Bilirubin Total* 0.5 mg/dL (0.1-1.5); Blood Urea Nitrogen* 14 mg/dL (7-30); Carbon Dioxide* 27 mmol/L (20-32); Creatinine* 0.6 mg/dL (0.5-1.5); Est. Creatinine Clearance* 92.79; Estimated Glomerular Filt Rate 109 ml/min; Total Protein* 6.9 g/dL (6.0-8.3)
[2024-06-23 08:53] LABS: Calcium* 9.4 mg/dL (8.4-10.6); Glucose* 201 mg/dL (60-115)
[2024-06-23 09:04] LABS: HCG Qualitative Serum* Negative (Negative)
[2024-06-23] MEDS: dexAMETHasone 20 MG in 0.9 % SODIUM CHLORIDE 100 ml 100 ML 408 MG IVPB (09:44)
[2024-06-23] MEDS: DOCEtaxeL 135 MG, TUBING SECONDARY 1 EACH in 0.9 % SODIUM CHL 250 ml Excel 250 ML 256 MG IVPB (10:27)
[2024-06-23] MEDS: cycloPHOSphamide 1,000 MG, TUBING SECONDARY 1 EACH in 0.9 % SODIUM CHLORIDE 250 ml 250 ML 360 MG IV (11:36)
[2024-06-23] MEDS: PEGFILGRASTIM-CBQV (ONBODY) 6 MG/0.6 ML SUBCUT (11:56)
[2024-06-23] MEDS: HEPARIN 500 UNIT/5 ML SYRINGE IVF (12:28)
[2024-06-23] MEDS: SODIUM CHLORIDE 0.9 % (FLUSH) 10 ML SYRINGE IVF (12:28)
--- NOTE | 2024-07-22 14:07 | ONC.NURNOTE ---
Patient called to report a 1-2 week history of upper right arm pain. She describes it as a tightness. Patient denies redness or swelling. This is the side of her lumpectomy and SLN biopsy. Patient is starting radiation soon. I encouraged her to ask the Rad-Onc team to assess and help her triage. She has an appointment with them tomorrow. If further assessment is needed, patient is encouraged to call [facility] and we will schedule her to see a provider.
--- NOTE | 2024-08-11 13:11 | ONC.NURNOTE ---
Follow up call to patient to discuss plan of care: 1. Dental clearance form emailed to patient to have dentist complete and fax to [facility] after her upcoming appointment 2. Patient already has port removal scheduled with Dr. Oquendo next week. Patient will start her Anastrozole as soon as it is available from her pharmacy and will call with any questions or concerns. 3 month follow up scheduled for November.
--- NOTE | 2024-08-16 14:00 | ONC.NURNOTE ---
Patient had called in 08/13 to let the [facility] she had forgotten to discuss a concern with Dr. Davis at her follow up visit. She has noticed increasing tightness in her right forearm and extending to her axilla the past few months. No swelling, redness, etc. Patient informed that Dr. Davis placed an consultation for a lymphedema evaluation. Our rehab team will call her to schedule. Patient verbalizes understanding.
--- NOTE | 2024-09-08 12:11 | ONC.NURNOTE ---
Call to patient to see how she is tolerating her anastrozole. Overall, patient is not experiencing significant side effects. She does report new onset heat intolerance. She explains that she sweats profusely when going outside in the heat. Otherwise, she denies joint pain or increased hot flashes. Patient scheduled for a survivorship visit 09/22 and oncology follow up 11/18. Patient encouraged to call with questions or concerns.
== END 2024-10-04 23:59 | disposition home or self-care (01) ==
LOC: CCIC 13:30
PROVIDERS: Internal Medicine Hematology & Oncology; PCP Family Medicine; Referring Provider Family Medicine; Visit Provider Clinical Nurse Specialist
DX: C50.911 Malignant neoplasm of unspecified site of right female breast (principal); Z17.0 Estrogen receptor positive status [ER+]; R53.83 Other fatigue; R23.2 Flushing; R00.0 Tachycardia, unspecified; Z87.442 Personal history of urinary calculi; Z90.11 Acquired absence of right breast and nipple
CPT/HCPCS: 36415; 36591; 80053; 84702; 84703; 85025; 96367; 96372; 96375; 96377; 96413; 96417; 99205; 99211; 99214; 99215; G0463; J9073; J1100; J1642; J2469; J7030; J7050; J9171; Q5111

== ENCOUNTER 2024-10-13 12:53 | Outpatient (CLI) | payer OTHER, SELFPAY ==
--- NOTE | 2024-10-13 13:00 | CRLHL7_ITS ---
For Patients: As a result of the Century Cures Act, medical imaging exams and procedure reports are released immediately into your electronic medical record. You may view this report before your referring provider. If you have questions, please contact your health care provider. CLINICAL HISTORY: Tachycardia TECHNIQUE: The carotid circulations and the vertebral arteries in the neck were examined with roque-scale ultrasound, color-flow and Doppler spectral analysis. Degrees of stenosis were determined using SRU 2002 Consensus Panel Criteria. FINDINGS: Sonographic images demonstrate no evidence of atherosclerotic plaque formation or suspicious soft tissue mass. There was antegrade blood flow demonstrated within the vertebral arteries and the subclavian arteries demonstrated a normal triphasic waveform. The spectral Doppler tracings of the common carotid, internal and external carotid arteries demonstrate no abnormal turbulence or spectral broadening. There was no significant elevation of peak systolic blood flow which would indicate a hemodynamically-significant stenosis by SRU criteria. The ICA/CCA peak systolic velocity ratio measures 1.5 on the right and 1.6 on the left. IMPRESSION: Normal carotid ultrasound. Dictated by Natan Ring MD @ 10/13/2024 1:58:06 PM (Electronically Signed)
== END 2024-10-13 12:54 | disposition home or self-care (01) ==
LOC: US 12:55
PROVIDERS: PCP Nurse Practitioner Family; Visit Provider Internal Medicine Clinical Cardiac Electrophysiology
DX: R00.0 Tachycardia, unspecified (principal)
CPT/HCPCS: 93880

== ENCOUNTER 2024-12-22 08:30 | Outpatient (CLI) | payer OTHER, SELFPAY ==
--- NOTE | 2024-12-22 08:45 | CRLHL7_ITS ---
For Patients: As a result of the Cures Act, medical imaging exams and procedure reports are released immediately into your electronic medical record. You may view this report before your referring provider. If you have questions, please contact your health care provider. DIGITAL DIAGNOSTIC BILATERAL MAMMOGRAM USING TOMOSYNTHESIS AND COMPUTER-AIDED DETECTION RIGHT AXILLARY ULTRASOUND CLINICAL HISTORY: RIGHT axillary fullness and tenderness. COMPARISON: 03/11/2024, 03/10/2024, 02/20/2024. TECHNIQUE: Digital BILATERAL mammogram in four projections with computer-aided detection. Tomosynthesis was used in this interpretation. Real-time ultrasound imaging of RIGHT axilla with imaging documentation. BREAST COMPOSITION: The breasts are almost entirely fatty. FINDINGS: 3D CC/MLO BILATERAL mammogram images submitted. Posttreatment changes RIGHT breast. No suspicious masses or suspicious calcifications. No enlarged lymph nodes. Targeted RIGHT axillary ultrasound performed. Normal subcutaneous tissues are noted. No adenopathy. IMPRESSION: No suspicious findings. No evidence of malignancy. RECOMMENDATIONS: Routine screening mammography. A lay language report of this examination will be provided to the patient. BI-RADS Category 2: Benign Dictated by Natan Ring MD @ 12/22/2024 9:41:52 AM jj/Dictated by: Natan Ring MD @ 12/22/2024 9:41:00 AM (Electronically Signed)
--- NOTE | 2024-12-22 09:15 | CRLHL7_ITS ---
For Patients: As a result of the Cures Act, medical imaging exams and procedure reports are released immediately into your electronic medical record. You may view this report before your referring provider. If you have questions, please contact your health care provider. SEE DIGITAL DIAGNOSTIC BILATERAL MAMMOGRAM PERFORMED SAME DAY CRL:dawna toney/Dictated by: Natan Ring MD @ 12/22/2024 9:41:00 AM (Electronically Signed)
== END 2024-12-22 08:31 | disposition home or self-care (01) ==
PROVIDERS: PCP Nurse Practitioner Family; Visit Provider Internal Medicine Hematology & Oncology
DX: R22.31 Localized swelling, mass and lump, right upper limb (principal)
CPT/HCPCS: 76882; 77066; G0279

== ENCOUNTER 2024-12-23 08:23 | Outpatient (CLI) | payer OTHER, SELFPAY | END 2024-12-23 08:24 | disposition home or self-care (01) | LOC: OP CLINIC 08:24 | PROVIDERS: PCP Nurse Practitioner Family; Visit Provider Surgery | DX: Z53.9 Procedure and treatment not carried out, unspecified reason (principal) ==

== ENCOUNTER 2024-12-24 12:33 | Outpatient (CLI) | payer OTHER, SELFPAY ==
--- NOTE | 2024-12-24 14:20 | P.ANES_ITS ---
Anesthesia Charges Start Date/Time Anesthesia Start Date: 12/24/24 Anesthesia Start Time: 13:35 Stop Date/Time Anesthesia Stop Date: 12/24/24 Anesthesia Stop Time: 14:14 Coding CPT Codes CPT Codes: FAZAL LWR INTST NDSC NOS - 54050 ([id number]) P2 - PATIENT W/MILD SYST DISEASE, QZ - CHURN TENDER SVC W/O DIGITAL DATA ANALYST BY
--- NOTE | 2024-12-24 14:20 | W.ANESCHARGE ---
Anesthesia Charges Start Date/Time Anesthesia Start Date: 12/24/24 Anesthesia Start Time: 13:35 Stop Date/Time Anesthesia Stop Date: 12/24/24 Anesthesia Stop Time: 14:14 Coding CPT Codes CPT Codes: FAZAL LWR INTST NDSC NOS - 53504 ([id number]) P2 - PATIENT W/MILD SYST DISEASE, QZ - ROLLER PNEUMATIC SVC W/O NURSE OUTREACH CASE MANAGER BY
== END 2024-12-24 12:34 | disposition home or self-care (01) ==
LOC: OP CLINIC 12:33
PROVIDERS: PCP Nurse Practitioner Family; Visit Provider Surgery
DX: Z12.11 Encounter for screening for malignant neoplasm of colon (principal); D12.0 Benign neoplasm of cecum; D12.8 Benign neoplasm of rectum
CPT/HCPCS: 00811; 00812; 45385; 88305; J2704

== ENCOUNTER 2025-01-17 08:00 | Outpatient (CLI) | payer OTHER, SELFPAY | END 2025-01-17 08:01 | disposition home or self-care (01) | LOC: NFLDREF 01-20 06:43 | PROVIDERS: PCP Nurse Practitioner Family; Referring Provider Nurse Practitioner Family; Visit Provider Internal Medicine Hematology & Oncology | DX: C50.811 Malignant neoplasm of overlapping sites of right female breast (principal) | CPT/HCPCS: 82310; 82565 ==